=== PATIENT | female | born 1930 | race Caucasian/White ===

== ENCOUNTER 2018-03-22 20:41 | Emergency (ER) | payer BC ==
[2018-03-22 20:51] VITALS: BP 143/63; PULSE 61; TEMP 97.7; BMI 27.2
--- NOTE | 2018-03-22 21:47 | PDOC ---
History of Present Illness - General Chief Complaint: Cold Symptoms Stated Complaint: COLD LIKE SYMPTOMS Time Seen by Provider: 03/22/18 21:25 - History of Present Illness Initial Comments: 87-year-old female with past medical history of dyslipidemia hypertension and diabetes. She is also on Plavix. Presents with 1 week's worth of cough and intermittent fever and chills. She has done nothing to treat this point 03/22/18 21:39 Past History - Past Medical History Allergies/Adverse Reactions: Allergies Allergy/AdvReac Type Severity Reaction Status Date / Time No Known Allergies Allergy Verified 03/22/18 20:51 Home Medications: Ambulatory Orders Atorvastatin Ca [Lipitor] 40 mg PO HS 02/25/12 Enalapril Maleate [Vasotec -] 5 mg PO DAILY 02/25/12 Amlodipine Besylate [Norvasc -] 10 mg PO DAILY #30 tablet 08/01/16 Aspirin [ASA -] 81 mg PO DAILY #5 tab.chew 08/01/16 Clopidogrel Bisulfate [Plavix -] 75 mg PO DAILY #30 tablet 08/01/16 Sitagliptin Phosphate [Januvia] 25 mg PO DAILY #30 tablet 08/01/16 Diabetes: Yes HTN: Yes Hypercholesterolemia: Yes - Surgical History Neurologic Surgery: Yes (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 + weakness. No weight change.] HEAD, EYES, EARS, NOSE AND THROAT: [No change in vision. No ear pain or discharge. No sore throat.] CARDIOVASCULAR: [No chest pain or shortness of breath.] RESPIRATORY: [+ cough, wheezing, no hemoptysis.] GASTROINTESTINAL: [No nausea, vomiting, diarrhea or constipation. No rectal bleeding.] GENITOURINARY: [No dysuria, frequency, or change in urination.] MUSCULOSKELETAL: [No joint or muscle swelling or pain. No neck or back pain.] SKIN AND BREASTS: [No rash or easy bruising.] NEUROLOGIC: [No headache, vertigo, loss of consciousness, or loss of sensation.] PSYCHIATRIC: [No depression or anxiety.] ENDOCRINE: [No increased thirst. No abnormal weight change.] HEMATOLOGIC/LYMPHATIC: [No anemia, easy bleeding, or history of blood clots.] ALLERGIC/IMMUNOLOGIC: [No hives or skin allergy. No latex allergy.] 03/22/18 21:40 *Physical Exam - Vital Signs Last Vital Signs Temp Pulse Resp BP Pulse Ox 97.7 F 61 16 143/63 97 03/22/18 20:48 03/22/18 20:48 03/22/18 20:48 03/22/18 20:48 03/22/18 20:48 - Physical Exam Comments: GENERAL: [The patient is awake, alert, and fully oriented, in no acute distress. ] HEAD: [Normal with no signs of trauma.] EYES: [Pupils equal, round and reactive to light, extraocular movements intact, sclera anicteric, conjunctiva clear.] ENT: [Ears normal, nares patent, oropharynx clear without exudates. Moist mucous membranes.] NECK: [Normal range of motion, supple without lymphadenopathy, JVD, or masses.] LUNGS: [She has diffuse rhonchi and wheezes bilaterally.] HEART: [Regular rate and rhythm, normal S1 and S2 without murmur, rub or gallop. ] ABDOMEN: [Soft, nontender, normoactive bowel sounds. No guarding, no rebound. No masses.] EXTREMITIES: [Normal range of motion, no edema. No clubbing or cyanosis. No cords, erythema, or tenderness.] NEUROLOGICAL: [Cranial nerves II through XII grossly intact. Normal speech, normal gait.] PSYCH: [Normal mood, normal affect.] SKIN: [Warm, Dry, normal turgor, no rashes or lesions noted.] 03/22/18 21:41 ED Treatment Course - RADIOLOGY Radiology Studies Ordered: Category Date Time Status CHEST - PA [RAD] Stat Radiology 03/22/18 21:33 Ordered *DC/Admit/Observation/Transfer - Referrals Referrals: Isreal Zimmerman MD [Primary Care Provider] - - Patient Instructions - Post Discharge Activity
[2018-03-22] MEDS ORDERED: ALBUTEROL SO4 0.042% IH SOL 1.25 MG/3 ML VIAL.NEB NEB ONE ×2 (21:48→22:10)
[2018-03-22] MEDS ORDERED: ALBUTEROL SO4 0.083% IH SOL 2.5 MG/3 ML VIAL.NEB. NEB ONE (21:49)
[2018-03-22 22:24] LABS: EOS % 4.7 % (0-4.5); HEMATOCRIT 36.9 % (32.4-45.2); HEMOGLOBIN 13.3 GM/dL (10.7-15.3); LYMPH % 19.5 % (8-40); MCH 34.3 pg (25.7-33.7); MEAN CELL VOLUME 95.3 fl (80-96); MONO % 8.5 % (3.8-10.2); NEUT % 66.3 % (42.8-82.8); PLATELET COUNT 252 K/MM3 (134-434); RBC 3.87 M/mm3 (3.60-5.2); RDW 13.1 % (11.6-15.6); WHITE BLOOD COUNT 10.3 K/mm3 (4.0-10.0)
[2018-03-22 22:46] LABS: ALBUMIN 3.8 g/dl (3.4-5.0); ALK PHOS 155 U/L (45-117); ANION GAP 8 (8-16); BILIRUBIN,TOTAL 0.2 mg/dL (0.2-1.0); BLOOD UREA NITROGEN 23 mg/dL (7-18); CALCIUM 8.6 mg/dL (8.5-10.1); CHLORIDE 104 mmol/L (98-107); CO2 24 mmol/L (21-32); CREATININE 1.4 mg/dL (0.55-1.02); GLUCOSE,RANDOM 236 mg/dL (74-106); POTASSIUM 5.3 mmol/L (3.5-5.1); SGOT/AST 19 U/L (15-37); SGPT/ALT 18 U/L (12-78); SODIUM 136 mmol/L (136-145); TOT PROT 7.8 g/dl (6.4-8.2)
--- NOTE | 2018-03-22 23:44 | PDOC ---
*Physical Exam - Vital Signs Last Vital Signs Temp Pulse Resp BP Pulse Ox 97.7 F 61 16 143/63 96 03/22/18 20:48 03/22/18 20:48 03/22/18 20:48 03/22/18 20:48 03/22/18 22:04 ED Treatment Course - LABORATORY CBC & Chemistry Diagram: 03/22/18 22:15 03/22/18 22:15 - ADDITIONAL ORDERS Additional order review: Laboratory Results 03/22/18 22:15 Sodium 136 Potassium 5.3 H Chloride 104 Carbon Dioxide 24 Anion Gap 8 BUN 23 H Creatinine 1.4 H Creat Clearance w eGFR 35.65 Random Glucose 236 H Calcium 8.6 Total Bilirubin 0.2 D AST 19 ALT 18 Alkaline Phosphatase 155 H Total Protein 7.8 Albumin 3.8 03/22/18 22:15 RBC 3.87 MCV 95.3 MCHC 36.0 RDW 13.1 MPV 9.0 Neutrophils % 66.3 Lymphocytes % 19.5 D Monocytes % 8.5 Eosinophils % 4.7 H D Basophils % 1.0 - Medications Given in the ED: ED Medications Discontinued Medications Generic Name Dose Route Start Last Admin Trade Name Freq PRN Reason Stop Dose Admin Albuterol Sulfate 1 amp 03/22/18 21:48 03/22/18 21:52 Ventolin 0.042trength) - NEB 03/22/18 21:49 1 amp ONCE ONE Administration Albuterol Sulfate 1 amp 03/22/18 22:10 03/22/18 22:22 Ventolin 0.042trength) - NEB 03/22/18 22:11 1 amp ONCE ONE Administration Progress Note - Progress Note Progress Note: 2340hrs: L/S CTAB. Pulse ox sat @97 room air *DC/Admit/Observation/Transfer Diagnosis at time of Disposition: Viral syndrome - Discharge Dispostion Disposition: HOME Condition at time of disposition: Stable Decision to Admit order: No - Referrals Referrals: Isreal Zimmerman MD [Primary Care Provider] - - Patient Instructions Printed Discharge Instructions: DI for Viral Syndrome Additional Instructions: Please follow-up with your physician within 548 hours Increase fluids [id number] supportive care As discussed, return back to the emergency department for severe/persistent or worsening symptoms or any concerns - Post Discharge Activity
== END 2018-03-22 23:48 | disposition home or self-care (01) ==
LOC: JER 20:41 → JERFT 20:41 → JER 23:48
PROC: 3E0F7GC Introduction of Other Therapeutic Substance into Respiratory Tract, Via Natural or Artificial Opening (ICD-10-PCS; principal; 2018-03-22)
PROC: 3E0F7GC Introduction of Other Therapeutic Substance into Respiratory Tract, Via Natural or Artificial Opening (ICD-10-PCS; 2018-03-22)
DX: B34.9 Viral infection, unspecified (principal); I10 Essential (primary) hypertension; E11.9 Type 2 diabetes mellitus without complications; E78.5 Hyperlipidemia, unspecified; D33.2 Benign neoplasm of brain, unspecified; Z79.01 Long term (current) use of anticoagulants; Z79.84 Long term (current) use of oral hypoglycemic drugs
CPT/HCPCS: 36415; 71045-TC-FY; 80053; 85025; 94640; 99281-25

== ENCOUNTER 2018-11-28 17:07 | Emergency (ER) | payer BC ==
--- NOTE | 2018-11-28 17:11 | PDOC ---
Rapid Medical Evaluation Time Seen by Provider: 11/28/18 17:09 Medical Evaluation: Allergies Allergy/AdvReac Type Severity Reaction Status Date / Time No Known Allergies Allergy Verified 03/22/18 20:51 11/28/18 17:09 I have performed a brief in-person evaluation of this patient. The patient presents with a chief complaint of: CERVANTES w/ abnormal sound in ears x 1 week. Taking advil w/ no relief. 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 Discharge Disposition - Diagnosis Headache Qualifiers: Headache type: unspecified Headache chronicity pattern: acute headache Intractability: intractable Qualified Code(s): R51 - Headache - Referrals - Patient Instructions - Post Discharge Activity
[2018-11-28 17:13] VITALS: BMI 26.6
[2018-11-28 17:30] LABS: BASO % 0.8 % (0-2.0); EOS % 2.3 % (0-4.5); HEMATOCRIT 37.8 % (32.4-45.2); HEMOGLOBIN 13.1 GM/dL (10.7-15.3); LYMPH % 30.8 % (8-40); MCH 33.3 pg (25.7-33.7); MCHC 34.8 g/dl (32.0-36.0); MEAN CELL VOLUME 95.6 fl (80-96); MEAN PLT VOLUME 9.1 fl (7.5-11.1); MONO % 9.4 % (3.8-10.2); NEUT % 56.7 % (42.8-82.8); PLATELET COUNT 223 K/MM3 (134-434); RBC 3.95 M/mm3 (3.60-5.2); RDW 12.2 % (11.6-15.6); WHITE BLOOD COUNT 7.8 K/mm3 (4.0-10.0)
[2018-11-28 17:31] LABS: URINE APPEARANCE SLCLOUDY; URINE BILIRUBIN NEGATIVE (<2.0 mg/dL); URINE COLOR LTYELLOW; URINE GLUCOSE (UA) NEGATIVE (NEGATIVE); URINE KETONE NEGATIVE (NEGATIVE); URINE LEUK ESTERASE 3+ (NEGATIVE); URINE NITRITE NEGATIVE (NEGATIVE); URINE PROTEIN 2+ (NEGATIVE); URINE UROBILINOGEN NEGATIVE mg/dL (0.2-1.0)
[2018-11-28 17:33] LABS: EPI CELLS RARE /HPF (FEW); URINE MUCUS RARE
[2018-11-28 18:09] LABS: ALBUMIN 3.7 g/dl (3.4-5.0); ALK PHOS 155 U/L (45-117); ANION GAP 10 MMOL/L (8-16); BILIRUBIN,TOTAL 0.2 mg/dL (0.2-1); BLOOD UREA NITROGEN 32 mg/dL (7-18); CALCIUM 8.6 mg/dL (8.5-10.1); CHLORIDE 107 mmol/L (98-107); CO2 24 mmol/L (21-32); CREATININE 1.5 mg/dL (0.55-1.3); GLUCOSE,RANDOM 228 mg/dL (74-106); POTASSIUM 5.1 mmol/L (3.5-5.1); SGOT/AST 11 U/L (15-37); SGPT/ALT 24 U/L (13-61); SODIUM 141 mmol/L (136-145); TOT PROT 7.4 g/dl (6.4-8.2)
[2018-11-28 18:57] VITALS: BP 144/69; PULSE 60; TEMP 98.1
--- NOTE | 2018-11-28 19:19 | PDOC ---
History of Present Illness - General Chief Complaint: Headache Stated Complaint: PCP SENT/EVALUATION TO R/O CVA Time Seen by Provider: 11/28/18 17:09 - History of Present Illness Initial Comments: The patient is an 87F w/ a history of HTN and acoustic neuroma s/p resection who presents for evaluation of CERVANTES. She reports that she has had it for 1wk. Described as generalized, gradual onset, b/l, comes/goes, and tried Advil w/ minimal relief. Denies fevers/chills, vision changes, chest pain, SOB, abdominal pain, N/V/C/D, or changes in sensation Denies recent fall Lives at home, alone. 11/28/18 19:48 Past History - Past Medical History Allergies/Adverse Reactions: Allergies Allergy/AdvReac Type Severity Reaction Status Date / Time No Known Allergies Allergy Verified 11/28/18 17:10 Home Medications: Ambulatory Orders Atorvastatin Ca [Lipitor] 40 mg PO HS 02/25/12 Enalapril Maleate [Vasotec -] 5 mg PO DAILY 02/25/12 Amlodipine Besylate [Norvasc -] 10 mg PO DAILY #30 tablet 08/01/16 Aspirin [ASA -] 81 mg PO DAILY #5 tab.chew 08/01/16 Clopidogrel Bisulfate [Plavix -] 75 mg PO DAILY #30 tablet 08/01/16 Sitagliptin Phosphate [Januvia] 25 mg PO DAILY #30 tablet 08/01/16 Cephalexin Monohydrate [Keflex -] 500 mg PO BID 7 Days #14 capsule 11/28/18 COPD: No Diabetes: Yes HTN: Yes Hypercholesterolemia: Yes - Surgical History Neurologic Surgery: Yes (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 No weakness HEAD, EYES, EARS, NOSE AND THROAT: No change in vision. No ear pain or discharge. No sore throat CARDIOVASCULAR: No chest pain or shortness of breath RESPIRATORY: Denies cough, hemoptysis GASTROINTESTINAL: No nausea, vomiting, diarrhea or constipation GENITOURINARY: No dysuria, frequency, or change in urination MUSCULOSKELETAL: +chronic b/l knee pain SKIN: No rash NEUROLOGIC: No vertigo, loss of consciousness, or change in strength/sensation ENDOCRINE: No increased thirst. No abnormal weight change ALLERGIC/IMMUNOLOGIC: No hives or skin allergy 11/28/18 19:13 Is the patient limited Lao proficient: No *Physical Exam - Vital Signs Last Vital Signs Temp Pulse Resp BP Pulse Ox 98.1 F 60 20 144/69 98 11/28/18 18:56 11/28/18 18:56 11/28/18 18:56 11/28/18 18:56 11/28/18 18:56 - Physical Exam Comments: GENERAL: Awake, alert, and fully oriented, in no acute distress HEAD: No signs of trauma, normocephalic, atraumatic EYES: PERRLA, EOMI, sclera anicteric, conjunctiva clear ENT: nares patent, oropharynx clear without exudates. No uvular deviation. Moist mucosa LUNGS: No distress, speaks full sentences, clear to auscultation bilaterally HEART: Regular rate and rhythm, normal S1 and S2, no murmurs appreciated, peripheral pulses normal and equal bilaterally ABDOMEN: Soft, nontender, normoactive bowel sounds. No guarding, no rebound EXTREMITIES : Normal inspection, Normal range of motion, no edema. No clubbing or cyanosis NEUROLOGICAL: Essential tremor, worse w/ purposeful movement, Cranial nerves II through XII grossly intact. no focal sensorimotor deficits SKIN: Warm, Dry 11/28/18 19:15 Moderate Sedation - Procedure Monitoring Vital Signs: Procedure Monitoring Vital Signs Temperature 98.1 F 11/28/18 18:56 Pulse Rate 60 11/28/18 18:56 Respiratory Rate 20 11/28/18 18:56 Blood Pressure 144/69 11/28/18 18:56 O2 Sat by Pulse Oximetry (%) 98 11/28/18 18:56 ED Treatment Course - LABORATORY CBC & Chemistry Diagram: 11/28/18 17:19 11/28/18 17:19 - ADDITIONAL ORDERS Additional order review: Laboratory Results 11/28/18 11/28/18 17:19 17:19 Sodium 141 Potassium 5.1 Chloride 107 Carbon Dioxide 24 Anion Gap 10 BUN 32 H Creatinine 1.5 H Creat Clearance w eGFR 32.92 Random Glucose 228 H Calcium 8.6 Total Bilirubin 0.2 AST 11 L ALT 24 Alkaline Phosphatase 155 H Total Protein 7.4 Albumin 3.7 Urine Color Ltyellow Urine Appearance Slcloudy Urine pH 5.0 D Ur Specific [place] 1.015 Urine Protein 2+ H Urine Glucose (UA) Negative Urine Ketones Negative Urine Blood Negative Urine Nitrite Negative Urine Bilirubin Negative Urine Urobilinogen Negative Ur Leukocyte Esterase 3+ H Urine WBC (Auto) 31 Urine RBC (Auto) <1 Ur Epithelial Cells Rare Urine Mucus Rare 11/28/18 17:19 RBC 3.95 MCV 95.6 MCHC 34.8 RDW 12.2 MPV 9.1 Neutrophils % 56.7 Lymphocytes % 30.8 D Monocytes % 9.4 Eosinophils % 2.3 Basophils % 0.8 Medical Decision Making - Medical Decision Making The pt is an 87F w/ a history of acoustic neuroma s/p resection 20y ago who presents for evaluation of a CERVANTES and tinnitus. ED Course CMP, CBC, UA CT Head CT w/o evidence acute pathology UA w/ evidence of UTI No anemia No leukocytosis 11/28/18 19:15 Keflex 500mg PO once for UTI -Rx for Keflex 500mg PO BID for 7d to pt's pharmacy Tylenol 975mg PO once for CERVANTES Discussed importance of medication compliance w/ patient and her family They plan to buy a pill organizer and help her manage her medications from now on Plan for D/C w/ PCP f/u Discharge instructions and return precautions given Patient and family in agreement and verbalize understanding Dispo: home 11/28/18 19:42 *DC/Admit/Observation/Transfer Diagnosis at time of Disposition: Headache Qualifiers: Headache type: unspecified Headache chronicity pattern: acute headache Intractability: intractable Qualified Code(s): R51 - Headache UTI (urinary tract infection) Qualifiers: Urinary tract infection type: site unspecified Hematuria presence: without hematuria Qualified Code(s): N39.0 - Urinary tract infection, site not specified - Discharge Dispostion Disposition: HOME Condition at time of disposition: Stable Decision to Admit order: No - Prescriptions Prescriptions: Cephalexin Monohydrate [Keflex -] 500 mg PO BID 7 Days #14 capsule - Referrals Referrals: Isreal Zimmerman MD [Primary Care Provider] - - Patient Instructions Printed Discharge Instructions: DI for Urinary Tract Infection (UTI) Additional Instructions: You were seen in the Emergency Department for headache. Your CT scan of your head was w/o acute pathology or bleed. You were found to have a urinary tract infection and given one dose of antibiotics here. A prescription for antibiotics was sent to your pharmacy. Take as directed. Also, follow up with your primary care physician. Return to the Emergency Department if you develop fevers/chills, vision changes , headache despite Tylenol use, chest pain, trouble breathing, changes in sensation, or any new/concerning symptoms. - Post Discharge Activity
[2018-11-28] MEDS ORDERED: ACETAMINOPHEN 325 MG TABLET (FP) PO ONE (19:23)
--- NOTE | 2018-11-28 19:23 | PDOC ---
Attending Attestation - HPI HPI: 11/28/18 19:41 The patient is a 87 year old female, with a significant PMH of acoustic neuroma s/p resection >20 years ago, dyslipidemia, hypertension and diabetes mellitus, who presents to the emergency department with 1 week history of intermittent bitemporal throbbing headache. The patient states she has experienced similar headaches in the past which she states normally last for 1 week before resolving. The patient also endorses abnormal sounds/ringing in her ears for 1 week. The patient states she has been taking Advil for the headache with minimal relief which prompted the ED visit. The patient denies chest pain, shortness of breath, and dizziness. Denies fever, chills, nausea, vomit, diarrhea and constipation. Denies dysuria, frequency, urgency and hematuria. Denies blurry vision or visual changes. Allergies: NKA Documentation prepared by Ricky Edwards, acting as medical transcription radiology for Kayla Langford MD. - Physicial Exam PE: 11/28/18 19:45 GENERAL: (+) Essential tremor noted in hands, arms and body, worsened with purposeful movement. Awake, alert, and fully oriented, in no acute distress HEAD: No signs of trauma EYES: PERRLA, EOMI, sclera anicteric, conjunctiva clear ENT: Auricles normal inspection, hearing grossly normal, nares patent, oropharynx clear without exudates. Moist mucosa NECK: Normal ROM, supple, no lymphadenopathy, JVD, or masses LUNGS: Breath sounds equal, clear to auscultation bilaterally. No wheezes, and no crackles HEART: Regular rate and rhythm, normal S1 and S2, no murmurs, rubs or gallops ABDOMEN: Soft, nontender, normoactive bowel sounds. No guarding, no rebound. No masses. No flank pain. EXTREMITIES: Normal range of motion, no edema. No clubbing or cyanosis. No cords, erythema, or tenderness. Reflex are intact throughout. NEUROLOGICAL: Cranial nerves II through XII grossly intact. Normal speech. SKIN: Warm, Dry, normal turgor, no rashes or lesions noted. <Ricky Edwards - Last Filed: 11/28/18 20:03> - Resident Resident Name: Vinicius Smith - ED Attending Attestation I have performed the following: I have examined & evaluated the patient, The case was reviewed & discussed with the resident, I agree w/resident's findings & plan - Medical Decision Making 11/29/18 06:14 Pt's headache is improved slightly. Pt has an essential tremor; she has normal head CT result. She states that the headache is bitemporal. However, her sed rate is normal at 23 and we do not think that this is a temporal arteritis. Pt was reassured and sent home with abx for her UTI, Home with son. <Kayla Langford - Last Filed: 11/29/18 06:16>
[2018-11-28] MEDS ORDERED: ACETAMINOPHEN 325 MG TABLET (FP) ONE (19:27)
[2018-11-28] MEDS ORDERED: CEPHALEXIN MONOHYDRATE 500 MG CAPSULE (UD) PO ONE (19:41)
[2018-11-28] MEDS ORDERED: CEPHALEXIN MONOHYDRATE 500 MG CAPSULE (UD) ONE (19:46)
== END 2018-11-28 20:03 | disposition home or self-care (01) ==
LOC: JER 17:07
DX: N39.0 Urinary tract infection, site not specified (principal); R51 Headache; I10 Essential (primary) hypertension; E11.9 Type 2 diabetes mellitus without complications; Z79.84 Long term (current) use of oral hypoglycemic drugs; E78.5 Hyperlipidemia, unspecified; Z86.011 Personal history of benign neoplasm of the brain
CPT/HCPCS: 36415; 70450-TC; 80053; 81003; 81015; 85025; 85651; 99282-25

== ENCOUNTER 2019-04-29 15:53 | Inpatient (IN) | payer BC | END 2019-05-06 13:29 | disposition home health service (06) | LOC: JICU 04-30 01:34 → JER 15:53 → JERBED 19:07 → J6S 04-30 19:23 → J7W 20:38 → J6S 04-30 22:53 ==

== ENCOUNTER 2019-05-15 18:36 | Inpatient (IN) | payer BC, OTHER ==
--- NOTE | 2019-05-15 19:11 | PDOC ---
History of Present Illness - General Chief Complaint: Nausea/Vomiting Stated Complaint: nausea Time Seen by Provider: 05/15/19 19:10 - History of Present Illness Initial Comments: 05/15/19 19:19 Ms. Steen is an 88 yo female w/ pmh of HLD, HTN, DM, w/ recent admission 04/29- for UTI who presents for evaluation of tremors and chills similar to presentation prior to last UTI. Son reported symptoms have been going for 1 day , prompting his visit. Ms. Steen reports she feels improved now however did not want to eat all day and was pale per son earlier in the day. She vomited once before arrival w/ EMS. The patient denies chest pain, shortness of breath, headache and dizziness. Denies diarrhea and constipation. Denies dysuria, frequency, urgency and hematuria. Allergies: NKA PCP: Ottoniel Past History - Past Medical History Allergies/Adverse Reactions: Allergies Allergy/AdvReac Type Severity Reaction Status Date / Time No Known Allergies Allergy Verified 05/15/19 18:54 Home Medications: Ambulatory Orders Atorvastatin Ca [Lipitor] 10 mg PO HS 02/25/12 Enalapril Maleate [Vasotec -] 5 mg PO DAILY 02/25/12 Amlodipine Besylate [Norvasc -] 10 mg PO DAILY #30 tablet 08/01/16 Sitagliptin Phosphate [Januvia] 25 mg PO DAILY #30 tablet 08/01/16 Ascorbate Calcium [Vitamin C] 500 mg PO DAILY 04/29/19 Cholecalciferol (Vitamin D3) [Vitamin D3] 1,000 unit PO DAILY 04/29/19 Propranolol HCl [Propranolol HCl ER] 60 mg PO DAILY 04/29/19 Acetaminophen [Tylenol .Regular Strength -] 650 mg PO Q6H PRN tablet 05/06/19 Quetiapine Fumarate [Seroquel -] 12.5 mg PO DAILY #30 tablet 05/06/19 Ranitidine [Zantac -] 150 mg PO DAILY #30 tablet 05/06/19 Sulfamethoxazole/Trimethoprim [Bactrim DS -] 1 each PO BID #14 tablet 05/06/19 Anemia: No Asthma: Yes Cancer: No Cardiac Disorders: No CVA: Yes (2015) COPD: No CHF: No Dementia: No Diabetes: Yes GI Disorders: No Disorders: No HTN: Yes Hypercholesterolemia: Yes Liver Disease: No Seizures: No Thyroid Disease: No - Surgical History Abdominal Surgery: No Appendectomy: No Cardiac Surgery: No Cholecystectomy: No Lung Surgery: No Neurologic Surgery: Yes (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 No weakness. HEAD, EYES, EARS, NOSE AND THROAT: No change in vision. No ear pain or discharge. No sore throat. CARDIOVASCULAR: No chest pain or shortness of breath RESPIRATORY: No cough, wheezing, or hemoptysis. GASTROINTESTINAL: +Single episode vomiting. No diarrhea or constipation. GENITOURINARY: No dysuria, frequency, or change in urination. MUSCULOSKELETAL: No joint or muscle swelling or pain. No neck or back pain. SKIN: No rash NEUROLOGIC: No headache, vertigo, loss of consciousness, or change in strength/ sensation. ENDOCRINE: No increased thirst. No abnormal weight change HEMATOLOGIC/LYMPHATIC: No anemia, easy bleeding, or history of blood clots. ALLERGIC/IMMUNOLOGIC: No hives or skin allergy. *Physical Exam - Vital Signs Last Vital Signs Temp Pulse Resp BP Pulse Ox 102.7 F H 76 16 159/69 94 L 05/15/19 18:40 05/15/19 18:40 05/15/19 18:40 05/15/19 18:40 05/15/19 18:40 - Physical Exam Comments: 05/15/19 19:27 GENERAL: Awake, alert, and fully oriented, in no acute distress HEAD: No signs of trauma, normocephalic, atraumatic EYES: PERRLA, EOMI, sclera anicteric, conjunctiva clear ENT: Auricles normal inspection, hearing grossly normal, nares patent, oropharynx clear without exudates. Moist mucosa NECK: Normal ROM, supple, no lymphadenopathy, JVD, or masses LUNGS: No distress, speaks full sentences, clear to auscultation bilaterally HEART: Regular rate and rhythm, normal S1 and S2, no murmurs, rubs or gallops, peripheral pulses normal and equal bilaterally. ABDOMEN: Soft, nontender, normoactive bowel sounds. No guarding, no rebound. No masses EXTREMITIES: Normal inspection, Normal range of motion, no edema. No clubbing or cyanosis. NEUROLOGICAL: Cranial nerves II through XII grossly intact. Normal speech, normal gait, no focal sensorimotor deficits SKIN: Warm, Dry, normal turgor, no rashes or lesions noted. ED Treatment Course - LABORATORY CBC & Chemistry Diagram: 05/15/19 19:23 05/15/19 19:23 Medical Decision Making - Medical Decision Making 05/15/19 19:41 Ms. Steen is an 88 yo female w/ pmh as described who presents for evaluation of symptoms concerning for sepsis. Patient evaluate w/ sepsis protocol and following cultures meropenem started per previous ID notes for prophylaxis. 05/15/19 20:34 Patient septic w/ unclear origin. Patient discussed w/ hospitalist for admit given high risk status and previous gram (-) rods. Patient will be admitted for ID consult. Laboratory Results - last 24 hr 05/15/19 05/15/19 05/15/19 19:23 19:23 19:23 WBC 12.0 H RBC 3.44 L Hgb 11.0 Hct 32.6 MCV 94.9 MCH 31.9 MCHC 33.7 RDW 12.1 Plt Count 213 D MPV 8.9 Absolute Neuts (auto) 10.6 H Neutrophils % 88.3 H D Lymphocytes % 4.9 L D Monocytes % 5.9 Eosinophils % 0.5 Basophils % 0.4 Nucleated RBC % 0 PT with INR 13.90 H INR 1.18 H PTT (Actin FS) 26.1 VBG pH POC VBG pCO2 POC VBG pO2 VBG HCO3 VBG O2 Sat (Elaine) VBG Base Excess Sodium Potassium Chloride Carbon Dioxide Anion Gap BUN Creatinine Est GFR (CKD-EPI)AfAm Est GFR (CKD-EPI)NonAf Random Glucose Lactic Acid Calcium Total Bilirubin AST ALT Alkaline Phosphatase Troponin I Total Protein Albumin Urine Color Yellow Urine Appearance Clear Urine pH 5.5 Ur Specific [place] 1.013 Urine Protein 3+ H Urine Glucose (UA) Negative Urine Ketones Negative Urine Blood 1+ H Urine Nitrite Negative Urine Bilirubin Negative Urine Urobilinogen 0.2 Ur Leukocyte Esterase Negative Urine WBC (Auto) 1 Urine RBC (Auto) 2 Urine Casts (Auto) 3 U Epithel Cells (Auto) 1.7 Urine Bacteria (Auto) 1.4 05/15/19 05/15/19 05/15/19 19:23 19:23 19:23 WBC RBC Hgb Hct MCV MCH MCHC RDW Plt Count MPV Absolute Neuts (auto) Neutrophils % Lymphocytes % Monocytes % Eosinophils % Basophils % Nucleated RBC % PT with INR INR PTT (Actin FS) VBG pH POC VBG pCO2 POC VBG pO2 VBG HCO3 VBG O2 Sat (Elaine) VBG Base Excess Sodium 128 L Potassium 5.5 H Chloride 100 Carbon Dioxide 20 L Anion Gap 8 BUN 23.2 H Creatinine 1.7 H Est GFR (CKD-EPI)AfAm 30.89 Est GFR (CKD-EPI)NonAf 26.65 Random Glucose 199 H Lactic Acid 1.2 Calcium 7.9 L Total Bilirubin 0.4 AST 15 ALT 19 Alkaline Phosphatase 111 Troponin I < 0.02 Total Protein 6.2 L Albumin 3.0 L Urine Color Urine Appearance Urine pH Ur Specific [place] Urine Protein Urine Glucose (UA) Urine Ketones Urine Blood Urine Nitrite Urine Bilirubin Urine Urobilinogen Ur Leukocyte Esterase Urine WBC (Auto) Urine RBC (Auto) Urine Casts (Auto) U Epithel Cells (Auto) Urine Bacteria (Auto) 05/15/19 20:00 WBC RBC Hgb Hct MCV MCH MCHC RDW Plt Count MPV Absolute Neuts (auto) Neutrophils % Lymphocytes % Monocytes % Eosinophils % Basophils % Nucleated RBC % PT with INR INR PTT (Actin FS) VBG pH 7.41 POC VBG pCO2 30.3 L POC VBG pO2 63.0 H VBG HCO3 18.7 L VBG O2 Sat (Elaine) 91.5 H VBG Base Excess -4.6 L Sodium Potassium Chloride Carbon Dioxide Anion Gap BUN Creatinine Est GFR (CKD-EPI)AfAm Est GFR (CKD-EPI)NonAf Random Glucose Lactic Acid Calcium Total Bilirubin AST ALT Alkaline Phosphatase Troponin I Total Protein Albumin Urine Color Urine Appearance Urine pH Ur Specific [place] Urine Protein Urine Glucose (UA) Urine Ketones Urine Blood Urine Nitrite Urine Bilirubin Urine Urobilinogen Ur Leukocyte Esterase Urine WBC (Auto) Urine RBC (Auto) Urine Casts (Auto) U Epithel Cells (Auto) Urine Bacteria (Auto) *DC/Admit/Observation/Transfer Diagnosis at time of Disposition: PATRIC (acute kidney injury) Sepsis Qualifiers: Sepsis type: sepsis due to unspecified organism Qualified Code(s): A41.9 - Sepsis, unspecified organism - Discharge Dispostion Decision to Admit order: Yes - Referrals Referrals: Isreal Zimmerman MD [Primary Care Provider] - - Patient Instructions - Post Discharge Activity
[2019-05-15] MEDS ORDERED: ACETAMINOPHEN 1000 MG/100 ML VIAL (NON FORMULARY) IVPB ONE (19:27)
[2019-05-15] MEDS ORDERED: MEROPENEM 500 MG in DEXTROSE 5%-WATER 100 ML IVPB ONE (19:40)
[2019-05-15 19:41] LABS: BASO % 0.4 % (0-2.0); EOS % 0.5 % (0-4.5); HEMATOCRIT 32.6 % (32.4-45.2); LYMPH % 4.9 % (8-40); MCH 31.9 pg (25.7-33.7); MCHC 33.7 g/dl (32.0-36.0); MEAN CELL VOLUME 94.9 fl (80-96); MEAN PLT VOLUME 8.9 fl (7.5-11.1); MONO % 5.9 % (3.8-10.2); NEUT % 88.3 % (42.8-82.8); PLATELET COUNT 213 K/MM3 (134-434); RBC 3.44 M/mm3 (3.60-5.2); RDW 12.1 % (11.6-15.6)
[2019-05-15] MEDS ORDERED: MEROPENEM 1 GM VIAL (RESTRICTED TO ID) IVPB ONE (19:50)
--- NOTE | 2019-05-15 19:52 | PDOC ---
Attending Attestation - Resident Resident Name: Kenji Holden - ED Attending Attestation I have performed the following: I have examined & evaluated the patient, The case was reviewed & discussed with the resident, I agree w/resident's findings & plan, Exceptions are as noted - HPI HPI: 05/15/19 19:48 88 year old female with hypertension, diabetes, hyperlipidemia, prior bacteremia secondary to urinary tract infection presents with fever since today. Patient was recently here in April 2019 and noted to have gram-negative ada bacteremia as well as positive urinary tract infection. There is some multidrug resistance at that time. The patient started developing a fever today and felt generalized weakness. The patient reported poor appetite but denies any abdominal pain or dysuria. - Physicial Exam PE: 05/15/19 19:48 GENERAL: Awake, alert, and fully oriented, in no acute distress HEAD: No signs of trauma EYES: EOMI, sclera anicteric, conjunctiva clear ENT: Auricles normal inspection, hearing grossly normal, nares patent, oropharynx clear without exudates. Moist mucosa NECK: Normal ROM, supple,ses LUNGS: Breath sounds equal, clear to auscultation bilaterally. No wheezes, and no crackles HEART: Regular rate and rhythm, normal S1 and S2, no murmurs, rubs or gallops ABDOMEN: Soft, nontender, No guarding, no rebound. No masses EXTREMITIES: Normal range of motion, no edema. No clubbing or cyanosis. No cords, erythema, or tenderness NEUROLOGICAL: Cranial nerves II through XII grossly intact. Normal speech SKIN: Warm, Dry, normal turgor, no rashes or lesions noted. - Medical Decision Making 05/15/19 19:50 Vital Signs Temp Pulse Resp BP Pulse Ox 102.7 F H 76 16 159/69 94 L 05/15/19 19:48 05/15/19 18:40 05/15/19 18:40 05/15/19 18:40 05/15/19 18:40 Patient's findings concerning for urinary tract infection, possibly gram- negative ada bacteremia like prior visit. I agree with resident's plan to obtain sepsis protocol initiated empiric antibiotics. The prior admission the patient was currently on and meropenem. We'll initiate meropenem. The patient lives by herself and is unlikely to be safe for discharge. The patient should be admitted to the hospital for further management. 05/15/19 21:07 CBC, BMP 05/15/19 19:23 05/15/19 19:23 CMP Sodium 128 mmol/L (136-145) L 05/15/19 19:23 Potassium 5.5 mmol/L (3.5-5.1) H 05/15/19 19:23 Chloride 100 mmol/L (98-107) 05/15/19 19:23 Carbon Dioxide 20 mmol/L (21-32) L 05/15/19 19:23 Anion Gap 8 MMOL/L (8-16) 05/15/19 19:23 BUN 23.2 mg/dL (7-18) H 05/15/19 19:23 Creatinine 1.7 mg/dL (0.55-1.3) H 05/15/19 19:23 Est GFR (CKD-EPI)AfAm 30.89 05/15/19 19:23 Est GFR (CKD-EPI)NonAf 26.65 05/15/19 19:23 Random Glucose 199 mg/dL (74-106) H 05/15/19 19:23 Lactic Acid 1.2 mmol/L (0.4-2.0) 05/15/19 19:23 Calcium 7.9 mg/dL (8.5-10.1) L 05/15/19 19:23 Total Bilirubin 0.4 mg/dL (0.2-1) 05/15/19 19:23 AST 15 U/L (15-37) 05/15/19 19:23 ALT 19 U/L (13-61) 05/15/19 19:23 Alkaline Phosphatase 111 U/L (45-117) 05/15/19 19:23 Troponin I < 0.02 ng/ml (0.00-0.05) 05/15/19 19:23 Total Protein 6.2 g/dl (6.4-8.2) L 05/15/19 19:23 Albumin 3.0 g/dl (3.4-5.0) L 05/15/19 19:23 Urine Test Results Urine Color Yellow 05/15/19 19:23 Urine Appearance Clear 05/15/19 19:23 Urine pH 5.5 (5.0-8.0) 05/15/19 19:23 Ur Specific [place] 1.013 (1.010-1.035) 05/15/19 19:23 Urine Protein 3+ (NEGATIVE) H 05/15/19 19:23 Urine Glucose (UA) Negative (NEGATIVE) 05/15/19 19:23 Urine Ketones Negative (NEGATIVE) 05/15/19 19:23 Urine Blood 1+ (NEGATIVE) H 05/15/19 19:23 Urine Nitrite Negative (NEGATIVE) 05/15/19 19:23 Urine Bilirubin Negative (NEGATIVE) 05/15/19 19:23 Ur Leukocyte Esterase Negative (NEGATIVE) 05/15/19 19:23 Though urine is negative, given high risk of bacteremia, pt should be admitted with empiric antibiotics. Heart Score/ECG Review #1 ECG reviewed & interpreted by me at: 21:00 05/15/19 21:26 NSR 65, no std/phyllis, normal axis, normal intervals, QTC 443 msec
[2019-05-15] MEDS ORDERED: ACETAMINOPHEN INJECTION 100 ML IVPB ONE (19:53)
[2019-05-15 20:08] LABS: EPI CELLS 1.7 /HPF (0-5/HPF); HYALINE CASTS 3 /lpf (0-8); PH,URINE 5.5 (5.0-8.0); URINE APPEARANCE CLEAR; URINE BACTERIA 1.4 /hpf (NEGATIVE); URINE BILIRUBIN NEGATIVE (NEGATIVE); URINE COLOR YELLOW; URINE GLUCOSE (UA) NEGATIVE (NEGATIVE); URINE KETONE NEGATIVE (NEGATIVE); URINE LEUK ESTERASE NEGATIVE (NEGATIVE); URINE NITRITE NEGATIVE (NEGATIVE); URINE PROTEIN 3+ (NEGATIVE); URINE RBC 2 /hpf (0-4); URINE UROBILINOGEN 0.2 mg/dL (0.2-1.0); URINE WBC 1 /hpf (0-5)
[2019-05-15 20:13] LABS: INR 1.18 (0.83-1.09); PROTHROMBIN TIME (PATIENT) 13.9 SEC (9.7-13.0)
[2019-05-15 20:16] LABS: ACTIVATED PTT 26.1 SECONDS (25.2-36.5)
[2019-05-15 20:17] LABS: VENOUS PC02 30.3 mmHg (41-51); VENOUS PH 7.41 (7.31-7.41)
[2019-05-15 20:19] LABS: BILIRUBIN,TOTAL 0.4 mg/dL (0.2-1); BLOOD UREA NITROGEN 23.2 mg/dL (7-18); CALCIUM 7.9 mg/dL (8.5-10.1); CREATININE 1.7 mg/dL (0.55-1.3); POTASSIUM 5.5 mmol/L (3.5-5.1); TOT PROT 6.2 g/dl (6.4-8.2)
[2019-05-15] MEDS ORDERED: SODIUM CHLORIDE 500 ML IV STA (20:25)
[2019-05-15] MEDS ORDERED: ACETAMINOPHEN 325 MG TABLET (FP) PO PRN (21:25)
[2019-05-15] MEDS ORDERED: DOCUSATE SODIUM 100 MG CAPSULE (FP) PO PRN (21:32)
[2019-05-15] MEDS ORDERED: SENNOSIDES 8.6MG TABLET (FP) PO PRN (21:32)
--- NOTE | 2019-05-15 22:16 | HP ---
Admitting History and Physical - Primary Care Physician PCP: Isreal Zimmerman - Admission Chief Complaint: Fever/chills/nausea/vomiting History of Present Illness: 85-year-old female with a past medical history of HTN, DM Type 2, HLD, PSHx of: Brain tumor removed (benign) who was hospitalized at [facility] from 04/29 - with UTI sepsis. urine and blood culture positive E. Coli. She was treated with meropenem and discharged home on bactrim BID x 7days. Pt reports N/V/fever and chills which started on the morning of 05/15. Her son decided to take her into the emergency department for evaluation. She denies chest pain, shortness of breath, headache and dizziness, diarrhea and constipation. Denies dysuria, frequency, urgency and hematuria. In ED: Vitals were T 102.7, HR 76, BP 159/69, O2 sat 94%, RR 16 CXR no acute findings Labs: WBC 12.0, K 5.5, lac 1.2, U/A +3 protein ,+ 1 blood Blood and urine cultures sent Pt dosed Meropenem 500mg x 1 dose and patient admitted for further management. History Source: Patient Limitations to Obtaining History: No Limitations - Past Medical History [employer]: Yes: Other (S/p brain Tumor w/ resting ataxia) Cardiovascular: Yes: HTN, Hyperlipdemia Gastrointestinal: Yes: GERD Reproductive: Yes: Postmenopausal ...: No Musculoskeletal: Yes: Osteoarthritis - Past Surgical History Additional Past Surgical History: brain tumor resection - Smoking History Smoking history: Never smoked Have you smoked in the past 12 months: No Aproximately how many cigarettes per day: 0 - Alcohol/Substance Use Hx Alcohol Use: No History of Substance Use: reports: None - Social History Usual Living Arrangement: Yes: Alone ADL: Family Assistance History of Recent Travel: No Home Medications - Allergies Allergies/Adverse Reactions: Allergies Allergy/AdvReac Type Severity Reaction Status Date / Time No Known Allergies Allergy Verified 05/15/19 18:54 - Home Medications Home Medications: Ambulatory Orders Atorvastatin Ca [Lipitor] 10 mg PO HS 02/25/12 Enalapril Maleate [Vasotec -] 5 mg PO DAILY 02/25/12 Amlodipine Besylate [Norvasc -] 10 mg PO DAILY #30 tablet 08/01/16 Sitagliptin Phosphate [Januvia] 25 mg PO DAILY #30 tablet 08/01/16 Ascorbate Calcium [Vitamin C] 500 mg PO DAILY 04/29/19 Cholecalciferol (Vitamin D3) [Vitamin D3] 1,000 unit PO DAILY 04/29/19 Propranolol HCl [Propranolol HCl ER] 60 mg PO DAILY 04/29/19 Acetaminophen [Tylenol .Regular Strength -] 650 mg PO Q6H PRN tablet 05/06/19 Quetiapine Fumarate [Seroquel -] 12.5 mg PO DAILY #30 tablet 05/06/19 Ranitidine [Zantac -] 150 mg PO DAILY #30 tablet 05/06/19 Sulfamethoxazole/Trimethoprim [Bactrim DS -] 1 each PO BID #14 tablet 05/06/19 Family Disease History - Family Disease History Family History: Unable to Obtain (pt does not recall details of family history) Review of Systems - Review of Systems Constitutional: reports: Chills, Fever, Loss of Appetite, Weakness Eyes: reports: No Symptoms HENT: reports: No Symptoms Neck: reports: No Symptoms Cardiovascular: reports: No Symptoms Respiratory: reports: No Symptoms Gastrointestinal: reports: Nausea, Vomiting Genitourinary: reports: No Symptoms Breasts: reports: No Symptoms Reported Musculoskeletal: reports: Decreased ROM, Muscle Weakness Integumentary: reports: No Symptoms Neurological: reports: Unsteady Gait Endocrine: reports: No Symptoms Hematology/Lymphatic: reports: No Symptoms Psychiatric: reports: No Symptoms Physical Examination Vital Signs: Vital Signs Temperature 99.3 F 05/15/19 21:17 Pulse Rate 88 05/15/19 21:17 Respiratory Rate 19 05/15/19 21:17 Blood Pressure 145/96 05/15/19 21:17 O2 Sat by Pulse Oximetry (%) 100 05/15/19 21:17 Constitutional: Yes: No Distress, Calm Eyes: Yes: Conjunctiva Clear, PERRL HENT: Yes: Atraumatic, Normocephalic, Other Neck: Yes: Supple Cardiovascular: Yes: Regular Rate and Rhythm Respiratory: Yes: Regular, Other (dminished at the bases) Gastrointestinal: Yes: Soft, Hypoactive Bowel Sounds ...Rectal Exam: Yes: Deferred Renal/: Yes: Incontinence (diaper in place) Musculoskeletal: Yes: Muscle Weakness Edema: No Peripheral Pulses WNL: Yes Peripheral Pulses: Left Radial: 2+, Right Radial: 2+ Integumentary: Yes: WNL Wound/Incision: Yes: Clean/Dry Neurological: Yes: Alert, Oriented ...Motor Strength: WNL Psychiatric: Yes: Alert, Oriented Labs: CBC, BMP 05/15/19 19:23 05/15/19 19:23 Imaging - Results Chest X-ray: Pending (CXR 05/15/2019) Problem List - Problems (1) Hyperkalemia Assessment/Plan: Kayexalate 15G x 1 dose overnight trend K and Scr Code(s): E87.5 - HYPERKALEMIA (2) Sepsis Assessment/Plan: ID consulted Meropenem dosed in ED. Start ceftazidime 1G Q24hrs for E.Coli bacteremia trend Fever and WBC curve follow up blood and urine cultures If blood cx +, sen ddaily blood cultures until clear APAP PRN fever. IV fluid resuscitation Code(s): A41.9 - SEPSIS, UNSPECIFIED ORGANISM Qualifiers: Sepsis type: sepsis due to unspecified organism Qualified Code(s): A41.9 - Sepsis, unspecified organism (3) HLD (hyperlipidemia) Assessment/Plan: c/w home dose of lipitor Code(s): E78.5 - HYPERLIPIDEMIA, UNSPECIFIED (4) HTN (hypertension) Assessment/Plan: vasotec 5mg daily Inderal 60mg daily norvasc 10mg daily Code(s): I10 - ESSENTIAL (PRIMARY) HYPERTENSION (5) Nausea & vomiting Assessment/Plan: IV fluid hydration PRN REglan for intractable N/V encourage oral fluid intake Code(s): R11.2 - NAUSEA WITH VOMITING, UNSPECIFIED (6) T2DM (type 2 diabetes mellitus) Assessment/Plan: Diabetic diet Insulin SS Hold januvia Code(s): E11.9 - TYPE 2 DIABETES MELLITUS WITHOUT COMPLICATIONS (7) Prophylactic measure Assessment/Plan: Heparin SC TID Bowel regimen with senna/colace Fall precautions-ambulates with a walker Zantac 150mg daily seroquel 12.5mg qhs, monitor QTc Code(s): Z29.9 - ENCOUNTER FOR PROPHYLACTIC MEASURES, UNSPECIFIED Assessment/Plan DISPO: full code Visit type - Emergency Visit Emergency Visit: Yes Care time: The patient presented to the Emergency Department on the above date and was hospitalized for further evaluation of their emergent condition. - New Patient This patient is new to me today: Yes Date on this admission: 05/15/19 - Critical Care Critical Care patient: No
[2019-05-15] MEDS ORDERED: SODIUM POLYSTYRENE SULFONATE 15 GM/60 ML BOTTLE PO ONE (22:22)
[2019-05-15 22:26] LABS: ARTERIAL BLOOD GAS PCO2 30.3 mmHg (35-45)
[2019-05-15 22:27] LABS: ALLENS TEST POSITIVE; ARTERIAL BLD GAS O2 SATURATION 96.4 % (95-98); ARTERIAL BLOOD GAS BASE EXCESS -4.9 meq/l (-2-2)
[2019-05-15] MEDS ORDERED: METOCLOPRAMIDE HCL INJECTION 10 MG/2 ML VIAL IVPUSH PRN (22:37)
[2019-05-15] MEDS: INSULIN SLIDING SCALE (NOVOLOG) 1 VIAL SQ SCH (22:40)
[2019-05-15] MEDS: LACTATED RINGERS SOLUTION 1,000 ML IV SCH (23:30)
[2019-05-15] MEDS: ATORVASTATIN CA 80 MG TABLET (FP) PO SCH (23:30)
[2019-05-15] MEDS: HEPARIN NA (PORCINE) 5,000 UNITS/ML 1ML VIAL SQ SCH (23:30)
[2019-05-16] MEDS ORDERED: cefTAZidime PENTAHYDRATE 1 GM/10 ML SYRINGE (RESTRICTED TO ID) IVPUSH SCH ×2 (06:00→10:00)
[2019-05-16] MEDS: INSULIN SLIDING SCALE (NOVOLOG) 1 VIAL SQ SCH ×4 (06:34→22:08)
[2019-05-16] MEDS: HEPARIN NA (PORCINE) 5,000 UNITS/ML 1ML VIAL SQ SCH ×3 (06:34→22:01)
[2019-05-16 06:57] LABS: ARTERIAL BLD GAS O2 SATURATION 98.2 % (95-98); ARTERIAL BLOOD GAS BASE EXCESS -2.3 meq/l (-2-2); ARTERIAL BLOOD GAS PCO2 34.6 mmHg (35-45); ARTERIAL BLOOD GAS PO2 101 mmHg (80-105); ARTERIAL BLOOD GAS pH 7.41 (7.35-7.45)
[2019-05-16 06:58] LABS: ALLENS TEST POSITIVE
[2019-05-16 08:18] LABS: HEMATOCRIT 30.7 % (32.4-45.2); HEMOGLOBIN 10.6 GM/dL (10.7-15.3); MCH 32.5 pg (25.7-33.7); MCHC 34.7 g/dl (32.0-36.0); MEAN CELL VOLUME 93.8 fl (80-96); MEAN PLT VOLUME 8.4 fl (7.5-11.1); RBC 3.27 M/mm3 (3.60-5.2); RDW 12.1 % (11.6-15.6); WHITE BLOOD COUNT 7.1 K/mm3 (4.0-10.0)
[2019-05-16 09:20] LABS: PLATELET COUNT 205 K/MM3 (134-434)
[2019-05-16 09:23] LABS: ALBUMIN 2.8 g/dl (3.4-5.0); BILIRUBIN,TOTAL 0.3 mg/dL (0.2-1); BLOOD UREA NITROGEN 19.4 mg/dL (7-18); CALCIUM 8.3 mg/dL (8.5-10.1); CREATININE 1.4 mg/dL (0.55-1.3); MAGNESIUM 1.7 mg/dL (1.8-2.4); N-TERMINAL BNP 1143.4 pg/ml (5-450); PHOSPHOROUS 3.8 mg/dL (2.5-4.9); POTASSIUM 4.6 mmol/L (3.5-5.1)
--- NOTE | 2019-05-16 09:45 | CON.PULM ---
Consult Consult Specialty:: PULMONARY Referred by:: HA Reason for Consultation:: FEVER/SEPSIS - History of Present Illness Chief Complaint: FEVER/SHAKING CHILLS History of Present Illness: 88 year old female with hypertension, diabetes, hyperlipidemia, benign essential tremor, prior gram negative bacteremia secondary to urinary tract infection presents to ER with fever . Patient was discharged 10 days ago and noted to have gram-negative ada bacteremia as well as positive urinary tract infection. There is some multidrug resistance at that time. The patient started developing a fever and felt generalized weakness. The patient reported poor appetite but denies any abdominal pain or dysuria. Son decided to take her back to ED. - History Source History Provided By: Patient, Family Member, Medical Record Limitations to Obtaining History: Clinical Condition - Past Medical History [employer]: Yes: Other (S/p brain Tumor w/ resting ataxia) Cardio/Vascular: Yes: HTN, Hyperlipdemia Gastrointestinal: Yes: GERD ...: No Musculoskeletal: Yes: Osteoarthritis - Alcohol/Substance Use Hx Alcohol Use: No History of Substance Use: reports: None - Smoking History Smoking history: Never smoked Have you smoked in the past 12 months: No Aproximately how many cigarettes per day: 0 - Social History Usual Living Arrangement: Alone ADL: Family Assistance History of Recent Travel: No Home Medications - Allergies Allergies/Adverse Reactions: Allergies Allergy/AdvReac Type Severity Reaction Status Date / Time No Known Allergies Allergy Verified 05/15/19 18:54 - Home Medications Home Medications: Ambulatory Orders Atorvastatin Ca [Lipitor] 10 mg PO HS 02/25/12 Enalapril Maleate [Vasotec -] 5 mg PO DAILY 02/25/12 Amlodipine Besylate [Norvasc -] 10 mg PO DAILY #30 tablet 08/01/16 Sitagliptin Phosphate [Januvia] 25 mg PO DAILY #30 tablet 08/01/16 Ascorbate Calcium [Vitamin C] 500 mg PO DAILY 04/29/19 Cholecalciferol (Vitamin D3) [Vitamin D3] 1,000 unit PO DAILY 04/29/19 Propranolol HCl [Propranolol HCl ER] 60 mg PO DAILY 04/29/19 Acetaminophen [Tylenol .Regular Strength -] 650 mg PO Q6H PRN tablet 05/06/19 Quetiapine Fumarate [Seroquel -] 12.5 mg PO DAILY #30 tablet 05/06/19 Ranitidine [Zantac -] 150 mg PO DAILY #30 tablet 05/06/19 Sulfamethoxazole/Trimethoprim [Bactrim DS -] 1 each PO BID #14 tablet 05/06/19 Family Disease History - Family Disease History Family History: Unremarkable Review of Systems - Review of Systems Constitutional: reports: Fever, Lethargy, Loss of Appetite Neck: denies: Decreased ROM Cardiovascular: denies: Chest Pain Respiratory: denies: Cough Gastrointestinal: denies: Abdominal Pain Genitourinary: denies: Burning Physical Exam Vital Sings: Vital Signs Temperature 97.4 F L 05/16/19 06:00 Pulse Rate 57 L 05/16/19 06:00 Respiratory Rate 20 05/16/19 06:00 Blood Pressure 137/74 05/16/19 06:00 O2 Sat by Pulse Oximetry (%) 100 05/15/19 21:17 Constitutional: Yes: Anxious Eyes: Yes: EOM Intact HENT: Yes: Normocephalic Neck: Yes: Trachea Midline Cardiovascular: Yes: S1, S2 Respiratory: Yes: CTA Bilaterally Gastrointestinal: Yes: Normal Bowel Sounds, Soft Edema: No Neurological: Yes: Alert Labs: CBC, BMP 05/16/19 07:30 05/16/19 07:15 ABG Results ABG pH 7.41 (7.35-7.45) 05/16/19 06:30 ABG pCO2 at Pt Temp 34.6 mmHg (35-45) L 05/16/19 06:30 ABG pO2 at Pt Temp 101 mmHg (80-105) 05/16/19 06:30 ABG HCO3 21.4 mmol/L (22-27) L 05/16/19 06:30 ABG O2 Sat (Measured) 98.2 % (95-98) H 05/16/19 06:30 ABG O2 Content 14.2 % vol (15-22) L 05/16/19 06:30 ABG Base Excess -2.3 meq/l (-2-2) L 05/16/19 06:30 Imaging - Results Chest X-ray: Report Reviewed, Image Reviewed Problem List - Problems (1) Sepsis Code(s): A41.9 - SEPSIS, UNSPECIFIED ORGANISM Qualifiers: Sepsis type: sepsis due to unspecified organism Qualified Code(s): A41.9 - Sepsis, unspecified organism (2) HLD (hyperlipidemia) Code(s): E78.5 - HYPERLIPIDEMIA, UNSPECIFIED (3) HTN (hypertension) Code(s): I10 - ESSENTIAL (PRIMARY) HYPERTENSION (4) UTI (urinary tract infection) Code(s): N39.0 - URINARY TRACT INFECTION, SITE NOT SPECIFIED Qualifiers: Urinary tract infection type: site unspecified Hematuria presence: without hematuria Qualified Code(s): N39.0 - Urinary tract infection, site not specified Assessment/Plan RECENT HOSPITALIZATION FOR E. COLI BACTEREMIA 2/2 UROSEPSIS DOCUMENTED FEVER WHILE AT HOME WITH SHAKING CHILLS MULTIPLE CO-MORBID CONDITIONS ALL CULTURES PENDING ANTIBIOTICS RESTARTED/ID CONSULT REQUESTED WILL CONTINUE HOME MEDS WILL DISCUSS WITH DAISY HANLEY MD
[2019-05-16] MEDS: amLODIPine BESYLATE 10 MG TABLET (FP) PO SCH (10:22)
[2019-05-16] MEDS: RANITIDINE HCL 150 MG TABLET (FP) PO SCH (10:22)
[2019-05-16] MEDS: QUEtiapine FUMARATE 25 MG TABLET (FP) PO SCH (10:22)
[2019-05-16] MEDS: ASCORBIC ACID 500 MG TABLET (FP) PO SCH (10:22)
[2019-05-16] MEDS: CHOLECALCIFEROL (VIT D3) 1,000 UNIT (25 MCG) TABLET PO SCH (10:22)
--- NOTE | 2019-05-16 10:31 | PN ---
Progress Note, Physician Chief Complaint: ESBL UTI Sepsis - Current Medication List Current Medications: Active Medications Acetaminophen (Tylenol -) 650 mg PO Q6H PRN PRN Reason: FEVER Amlodipine Besylate (Norvasc -) 10 mg PO DAILY [facility] Last Admin: 05/16/19 10:22 Dose: 10 mg Ascorbic Acid (Vitamin C -) 500 mg PO DAILY [facility] Last Admin: 05/16/19 10:22 Dose: 500 mg Atorvastatin Calcium (Lipitor -) 10 mg PO HS [facility] Last Admin: 05/15/19 23:30 Dose: 10 mg Ceftazidime (Fortaz (Restricted To Id) -) 1 gm IVPUSH DAILY [facility] Cholecalciferol (Vitamin D3 -) 1,000 unit PO DAILY [facility] Last Admin: 05/16/19 10:22 Dose: 1,000 unit Docusate Sodium (Colace -) 100 mg PO Q8H PRN PRN Reason: CONSTIPATION Enalapril Maleate (Vasotec -) 5 mg PO DAILY [facility] Heparin Sodium (Porcine) (Heparin -) 5,000 unit SQ TID [facility] Last Admin: 05/16/19 06:34 Dose: 5,000 unit Lactated Ringer's (Lactated Ringers Solution) 1,000 mls @ 42 mls/hr IV ASDIR [facility] Last Admin: 05/15/19 23:30 Dose: 42 mls/hr Insulin Aspart (Novolog Vial Sliding Scale -) 1 vial SQ ACHS [facility]; Protocol Last Admin: 05/16/19 06:34 Dose: Not Given Metoclopramide HCl (Reglan Injection -) 10 mg IVPUSH Q8H PRN PRN Reason: NAUSEA AND/OR VOMITING Propranolol HCl (Inderal La -) 60 mg PO DAILY [facility] Quetiapine Fumarate (Seroquel -) 12.5 mg PO DAILY [facility] Last Admin: 05/16/19 10:22 Dose: 12.5 mg Ranitidine HCl (Zantac -) 150 mg PO DAILY [facility] Last Admin: 05/16/19 10:22 Dose: 150 mg Senna (Senna -) 2 tab PO HS PRN PRN Reason: CONSTIPATION - Objective Vital Signs: Vital Signs Temperature 97.4 F L 05/16/19 06:00 Pulse Rate 57 L 05/16/19 06:00 Respiratory Rate 20 05/16/19 06:00 Blood Pressure 137/74 05/16/19 06:00 O2 Sat by Pulse Oximetry (%) 100 05/15/19 21:17 Constitutional: Yes: Well Nourished, No Distress, Calm Cardiovascular: Yes: Regular Rate and Rhythm Respiratory: Yes: Regular Gastrointestinal: Yes: WNL Genitourinary: Yes: Incontinence Musculoskeletal: Yes: WNL Extremities: Yes: WNL Edema: No Peripheral Pulses WNL: Yes Neurological: Yes: Alert, Oriented, Pre-Existing Deficit Psychiatric: Yes: Alert, Oriented Labs: CBC, BMP 05/16/19 07:30 05/16/19 07:15 INR, PTT INR 1.18 (0.83-1.09) H 05/15/19 19:23 Problem List - Problems (1) PATRIC (acute kidney injury) Assessment/Plan: -Trend cr -Nephrology consult -Continue IVF Code(s): N17.9 - ACUTE KIDNEY FAILURE, UNSPECIFIED (2) Sepsis Assessment/Plan: -Fever overnight -ID consult -Cultures pending -Started on IV abx -Tylenol for fever >100.0F Code(s): A41.9 - SEPSIS, UNSPECIFIED ORGANISM Qualifiers: Sepsis type: sepsis due to unspecified organism Qualified Code(s): A41.9 - Sepsis, unspecified organism (3) T2DM (type 2 diabetes mellitus) Assessment/Plan: -BGM AC HS -ISS -Last a1c at 8.9 on 04/30/19 -Diabetic low sodium diet -Januvia on hold due to PATRIC -Start Levemir 10 U QAM -Endocrine consult Code(s): E11.9 - TYPE 2 DIABETES MELLITUS WITHOUT COMPLICATIONS (4) UTI (urinary tract infection) Assessment/Plan: -Fever overnight -ID consult -Cultures pending -Started on IV abx -Tylenol for fever >100.0F -Continue IVF Code(s): N39.0 - URINARY TRACT INFECTION, SITE NOT SPECIFIED Qualifiers: Urinary tract infection type: site unspecified Hematuria presence: without hematuria Qualified Code(s): N39.0 - Urinary tract infection, site not specified Assessment/Plan see problem list
--- NOTE | 2019-05-16 13:44 | PN ---
Progress Note (short form) - Note Progress Note: ID CONSULT DICTATED SEPSIS R/O RECURRENT GRAM NEGATIVE SEPSIS AWAIT C/S CONTINUE CEFTAZIDIME
[2019-05-16] MEDS: CEFTAZIDIME PENTAHYDRATE 1 GM in DEXTROSE 5%-WATER 100 ML IVPB SCH (17:30)
[2019-05-16] MEDS: ENALAPRIL MALEATE 5 MG TABLET (FP) PO SCH (17:30)
[2019-05-16] MEDS ORDERED: PT OWN MED DRAWER 7, Y5N ONE (18:41)
[2019-05-16] MEDS: LACTATED RINGERS SOLUTION 1,000 ML IV SCH (22:00)
--- NOTE | 2019-05-16 23:34 | CONSULT ---
Consult Consult Specialty:: ENDOCRINE Referred by:: BRIANNA FULLER Reason for Consultation:: DIABETES MELLITUS UNCONTROLLED - History of Present Illness Chief Complaint: HIGH SUGARS AT HOME History of Present Illness: 85-year-old female with a past medical history of DM2,HTN, , HLD, PSHx of: Brain tumor removed (benign) who was hospitalized at [facility] with UTI, admitted with fever and chills,weakness and high sugars,she has had frequency, and increased thirst,dry mouth. she denies chest pain cough,or hypoglycemia.she has taken pills for diabetes but feels sugars still high. - Past Medical History ASSISTANT TO THE PRESIDENT: Yes: Other (S/p brain Tumor w/ resting ataxia) Cardio/Vascular: Yes: HTN, Hyperlipdemia Gastrointestinal: Yes: GERD ...: No Musculoskeletal: Yes: Osteoarthritis - Alcohol/Substance Use Hx Alcohol Use: No History of Substance Use: reports: None - Smoking History Smoking history: Never smoked Have you smoked in the past 12 months: No Aproximately how many cigarettes per day: 0 - Social History Usual Living Arrangement: Alone ADL: Family Assistance History of Recent Travel: No Home Medications - Allergies Allergies/Adverse Reactions: Allergies Allergy/AdvReac Type Severity Reaction Status Date / Time No Known Allergies Allergy Verified 05/15/19 18:54 - Home Medications Home Medications: Ambulatory Orders Atorvastatin Ca [Lipitor] 10 mg PO HS 02/25/12 Enalapril Maleate [Vasotec -] 5 mg PO DAILY 02/25/12 Amlodipine Besylate [Norvasc -] 10 mg PO DAILY #30 tablet 08/01/16 Sitagliptin Phosphate [Januvia] 25 mg PO DAILY #30 tablet 08/01/16 Ascorbate Calcium [Vitamin C] 500 mg PO DAILY 04/29/19 Cholecalciferol (Vitamin D3) [Vitamin D3] 1,000 unit PO DAILY 04/29/19 Propranolol HCl [Propranolol HCl ER] 60 mg PO DAILY 04/29/19 Acetaminophen [Tylenol .Regular Strength -] 650 mg PO Q6H PRN tablet 05/06/19 Quetiapine Fumarate [Seroquel -] 12.5 mg PO DAILY #30 tablet 05/06/19 Ranitidine [Zantac -] 150 mg PO DAILY #30 tablet 05/06/19 Sulfamethoxazole/Trimethoprim [Bactrim DS -] 1 each PO BID #14 tablet 05/06/19 Review of Systems - Review of Systems Constitutional: reports: Weakness Eyes: reports: Blurred Vision HENT: reports: No Symptoms Neck: reports: No Symptoms Respiratory: reports: No Symptoms Gastrointestinal: reports: Bloating, Nausea Genitourinary: reports: Burning, Frequency Breasts: reports: No Symptoms Reported Musculoskeletal: reports: Joint Pain, Joint Swelling Neurological: reports: Tremors, Weakness Endocrine: reports: No Symptoms Physical Exam Vital Signs: Vital Signs Temperature 100.3 F H 05/16/19 21:00 Pulse Rate 72 05/16/19 21:00 Respiratory Rate 18 05/16/19 21:00 Blood Pressure 150/60 05/16/19 21:00 O2 Sat by Pulse Oximetry (%) 100 05/16/19 09:00 Eyes: Yes: EOM Intact HENT: Yes: Normocephalic Neck: Yes: Trachea Midline Respiratory: Yes: CTA Bilaterally Gastrointestinal: Yes: Normal Bowel Sounds ...Rectal Exam: Yes: Deferred Renal/: Yes: WNL Musculoskeletal: Yes: WNL Extremities: Yes: WNL Edema: No Integumentary: Yes: WNL Neurological: Yes: Alert, Numbness, Tingling Psychiatric: Yes: Alert, Oriented Labs: CBC, BMP 05/16/19 07:30 05/16/19 07:15 Problem List - Problems (1) Sepsis Code(s): A41.9 - SEPSIS, UNSPECIFIED ORGANISM Qualifiers: Sepsis type: sepsis due to unspecified organism Qualified Code(s): A41.9 - Sepsis, unspecified organism (2) DVT prophylaxis Code(s): THA2308 - (3) Dehydration Code(s): E86.0 - DEHYDRATION (4) HLD (hyperlipidemia) Code(s): E78.5 - HYPERLIPIDEMIA, UNSPECIFIED Assessment/Plan Current Active Problems diabetes mellitus hyperglycemia,type 2 PATRIC (acute kidney injury) (Acute) Hyperkalemia (Acute) Prophylactic measure (Acute) Sepsis (Acute) Abnormal Lab Results 05/16/19 05/16/19 05/16/19 06:30 07:15 07:30 RBC 3.27 L Hgb 10.6 L Hct 30.7 L ABG pCO2 at Pt Temp 34.6 L ABG HCO3 21.4 L ABG O2 Sat (Measured) 98.2 H ABG O2 Content 14.2 L ABG Base Excess -2.3 L BUN 19.4 H Creatinine 1.4 H Calcium 8.3 L Magnesium 1.7 L AST 13 L B-Natriuretic Peptide 1143.4 H Total Protein 6.0 L Albumin 2.8 L Laboratory Results - last 24 hr 05/16/19 05/16/19 05/16/19 06:27 06:30 07:15 WBC RBC Hgb Hct MCV MCH MCHC RDW Plt Count MPV Anticoagulation Therapy No Result Required. Puncture Site Right brachial ABG pH 7.41 ABG pCO2 at Pt Temp 34.6 L ABG pO2 at Pt Temp 101 ABG HCO3 21.4 L ABG O2 Sat (Measured) 98.2 H ABG O2 Content 14.2 L ABG Base Excess -2.3 L Felix Test Positive O2 Delivery Device Nasal cannula Oxygen Flow Rate 2l Vent Mode No Result Required. Vent Rate No Result Required. Mechanical Rate No Result Required. Pressure Support Vent No Result Required. Sodium 136 Potassium 4.6 Chloride 104 Carbon Dioxide 22 Anion Gap 10 BUN 19.4 H Creatinine 1.4 H Est GFR (CKD-EPI)AfAm 39.06 Est GFR (CKD-EPI)NonAf 33.70 POC Glucometer 87 Random Glucose 84 Calcium 8.3 L Phosphorus 3.8 Magnesium 1.7 L Total Bilirubin 0.3 AST 13 L ALT 18 Alkaline Phosphatase 103 B-Natriuretic Peptide 1143.4 H Total Protein 6.0 L Albumin 2.8 L Total Amylase 29 Lipase 108 05/16/19 05/16/19 05/16/19 07:30 11:30 17:10 WBC 7.1 RBC 3.27 L Hgb 10.6 L Hct 30.7 L MCV 93.8 MCH 32.5 MCHC 34.7 RDW 12.1 Plt Count 205 MPV 8.4 Anticoagulation Therapy Puncture Site ABG pH ABG pCO2 at Pt Temp ABG pO2 at Pt Temp ABG HCO3 ABG O2 Sat (Measured) ABG O2 Content ABG Base Excess Felix Test O2 Delivery Device Oxygen Flow Rate Vent Mode Vent Rate Mechanical Rate Pressure Support Vent Sodium Potassium Chloride Carbon Dioxide Anion Gap BUN Creatinine Est GFR (CKD-EPI)AfAm Est GFR (CKD-EPI)NonAf POC Glucometer 154 149 Random Glucose Calcium Phosphorus Magnesium Total Bilirubin AST ALT Alkaline Phosphatase B-Natriuretic Peptide Total Protein Albumin Total Amylase Lipase 05/16/19 21:58 WBC RBC Hgb Hct MCV MCH MCHC RDW Plt Count MPV Anticoagulation Therapy Puncture Site ABG pH ABG pCO2 at Pt Temp ABG pO2 at Pt Temp ABG HCO3 ABG O2 Sat (Measured) ABG O2 Content ABG Base Excess Felix Test O2 Delivery Device Oxygen Flow Rate Vent Mode Vent Rate Mechanical Rate Pressure Support Vent Sodium Potassium Chloride Carbon Dioxide Anion Gap BUN Creatinine Est GFR (CKD-EPI)AfAm Est GFR (CKD-EPI)NonAf POC Glucometer 210 Random Glucose Calcium Phosphorus Magnesium Total Bilirubin AST ALT Alkaline Phosphatase B-Natriuretic Peptide Total Protein Albumin Total Amylase Lipase plan: given limitation use insulin and patient reluctance ck hba1c glimiperide 4mg daily januvia 100mg daily will benefit from vns nutrition consult trulicity weekly dose as outpatient.
[2019-05-16] MEDS: ATORVASTATIN CA 80 MG TABLET (FP) PO SCH (23:40)
[2019-05-17] MEDS ORDERED: PT OWN MED DRAWER 7, Y5N ONE ×3 (02:31→17:30)
[2019-05-17] MEDS: CEFTAZIDIME PENTAHYDRATE 1 GM in DEXTROSE 5%-WATER 100 ML IVPB SCH ×3 (02:34→17:52)
[2019-05-17] MEDS: LACTATED RINGERS SOLUTION 1,000 ML IV SCH (04:14)
[2019-05-17] MEDS: HEPARIN NA (PORCINE) 5,000 UNITS/ML 1ML VIAL SQ SCH ×3 (05:43→21:37)
[2019-05-17] MEDS: INSULIN SLIDING SCALE (NOVOLOG) 1 VIAL SQ SCH ×4 (06:29→21:40)
[2019-05-17] MEDS: GLIMEPIRIDE 4 MG TABLET (FP) PO SCH (06:31)
[2019-05-17] MEDS ORDERED: INSULIN (LEVEMIR) 100 UNITS/ML UNITS SQ SCH (07:00)
[2019-05-17 08:56] VITALS: BMI 24.9
--- NOTE | 2019-05-17 08:56 | CON.NEP ---
Consult Consult Specialty:: nephrology - History of Present Illness Chief Complaint: uti History of Present Illness: 88 year old female with hypertension, diabetes, hyperlipidemia, prior bacteremia secondary to urinary tract infection presents with fever since today. Patient was recently here in April 2019 and noted to have gram-negative ada bacteremia as well as positive urinary tract infection. There is some multidrug resistance at that time. The patient started developing a fever today and felt generalized weakness. The patient reported poor appetite but denies any abdominal pain or dysuria. 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 (S/p brain Tumor w/ resting ataxia) Cardio/Vascular: Yes: HTN, Hyperlipdemia Gastrointestinal: Yes: GERD ...: No Musculoskeletal: Yes: Osteoarthritis - Alcohol/Substance Use Hx Alcohol Use: No History of Substance Use: reports: None - Smoking History Smoking history: Never smoked Have you smoked in the past 12 months: No Aproximately how many cigarettes per day: 0 - Social History Usual Living Arrangement: Alone ADL: Family Assistance History of Recent Travel: No Home Medications - Allergies Allergies/Adverse Reactions: Allergies Allergy/AdvReac Type Severity Reaction Status Date / Time No Known Allergies Allergy Verified 05/15/19 18:54 - Home Medications Home Medications: Ambulatory Orders Atorvastatin Ca [Lipitor] 10 mg PO HS 02/25/12 Enalapril Maleate [Vasotec -] 5 mg PO DAILY 02/25/12 Amlodipine Besylate [Norvasc -] 10 mg PO DAILY #30 tablet 08/01/16 Sitagliptin Phosphate [Januvia] 25 mg PO DAILY #30 tablet 08/01/16 Ascorbate Calcium [Vitamin C] 500 mg PO DAILY 04/29/19 Cholecalciferol (Vitamin D3) [Vitamin D3] 1,000 unit PO DAILY 04/29/19 Propranolol HCl [Propranolol HCl ER] 60 mg PO DAILY 04/29/19 Acetaminophen [Tylenol .Regular Strength -] 650 mg PO Q6H PRN tablet 05/06/19 Quetiapine Fumarate [Seroquel -] 12.5 mg PO DAILY #30 tablet 05/06/19 Ranitidine [Zantac -] 150 mg PO DAILY #30 tablet 05/06/19 Sulfamethoxazole/Trimethoprim [Bactrim DS -] 1 each PO BID #14 tablet 05/06/19 Review of Systems - Review of Systems Constitutional: reports: Weakness Eyes: reports: No Symptoms HENT: reports: No Symptoms Neck: reports: No Symptoms Cardiovascular: reports: No Symptoms Respiratory: reports: No Symptoms Gastrointestinal: reports: No Symptoms Genitourinary: reports: Burning Breasts: reports: No Symptoms Reported Musculoskeletal: reports: No Symptoms Integumentary: reports: No Symptoms Neurological: reports: No Symptoms Endocrine: reports: No Symptoms Hematology/Lymphatic: reports: No Symptoms Psychiatric: reports: No Symptoms Nephrology Consult - Height Height: 4 ft 11 in - Weight Weight: 123 lb 9 oz - BMI Body Mass Index (BMI): 24.9 - Lab Results CBC,BMP: CBC, BMP 05/16/19 07:30 05/16/19 07:15 Anion Gap: Anion Gap Anion Gap 10 MMOL/L (8-16) 05/16/19 07:15 - Imaging Chest X-ray: Report Reviewed (an element of congestion can not be excluded) - Physical Examination Vital Signs: Vital Signs Temperature 98.4 F 05/17/19 06:00 Pulse Rate 54 L 05/17/19 06:00 Respiratory Rate 18 05/17/19 06:00 Blood Pressure 144/74 05/17/19 06:00 O2 Sat by Pulse Oximetry (%) 97 05/16/19 21:00 Constitutional: Yes: Well Nourished, No Distress, Calm Eyes: Yes: Conjunctiva Clear, EOM Intact HENT: Yes: Atraumatic, Normocephalic Neck: Yes: Supple, Trachea Midline Cardiovascular: Yes: Regular Rate and Rhythm, Murmur Respiratory: Yes: Regular, CTA Bilaterally Gastrointestinal: Yes: Normal Bowel Sounds, Soft Renal/: Yes: WNL Musculoskeletal: Yes: WNL Extremities: Yes: WNL Edema: No Neurological: Yes: Alert, Oriented Psychiatric: Yes: Alert, Oriented Assessment/Plan IMPRESSION pt has ckd which seems to have dropped back to her baseline Its possible her kidney function worsened from volume depletion though bactrim can cause hyperkalemia and zeenat as well likely has diabetic nephropathy has microscopic hematuria previous e coli, current cultures neg PLAN would keep off bactrim gentle hydration monitor renal function would consider urology to eval hematuria f/u culturees MV
--- NOTE | 2019-05-17 09:19 | PN ---
Progress Note, Physician Chief Complaint: ESBL UTI Sepsis History of Present Illness: NAD low grade temp overnight On IV abx Seen by Nephrology and endocrinology - Current Medication List Current Medications: Active Medications Acetaminophen (Tylenol -) 650 mg PO Q6H PRN PRN Reason: FEVER Last Admin: 05/16/19 20:58 Dose: 650 mg Amlodipine Besylate (Norvasc -) 10 mg PO DAILY [facility] Last Admin: 05/16/19 10:22 Dose: 10 mg Ascorbic Acid (Vitamin C -) 500 mg PO DAILY [facility] Last Admin: 05/16/19 10:22 Dose: 500 mg Atorvastatin Calcium (Lipitor -) 10 mg PO [facility] Cholecalciferol (Vitamin D3 -) 1,000 unit PO DAILY [facility] Last Admin: 05/16/19 10:22 Dose: 1,000 unit Docusate Sodium (Colace -) 100 mg PO Q8H PRN PRN Reason: CONSTIPATION Enalapril Maleate (Vasotec -) 5 mg PO DAILY [facility] Last Admin: 05/16/19 17:30 Dose: 5 mg Glimepiride (Amaryl -) 4 mg PO DAILY@0700 [facility] Last Admin: 05/17/19 06:31 Dose: 4 mg Heparin Sodium (Porcine) (Heparin -) 5,000 unit SQ TID [facility] Last Admin: 05/17/19 05:43 Dose: 5,000 unit Lactated Ringer's (Lactated Ringers Solution) 1,000 mls @ 42 mls/hr IV ASDIR [facility] Last Admin: 05/17/19 04:14 Dose: 42 mls/hr Ceftazidime 1 gm/ Dextrose 100 mls @ 200 mls/hr IVPB Q8H-IV [facility]; Protocol Last Admin: 05/17/19 02:34 Dose: 200 mls/hr Insulin Aspart (Novolog Vial Sliding Scale -) 1 vial SQ ACHS [facility]; Protocol Last Admin: 05/17/19 06:29 Dose: Not Given Metoclopramide HCl (Reglan Injection -) 10 mg IVPUSH Q8H PRN PRN Reason: NAUSEA AND/OR VOMITING Propranolol HCl (Inderal La -) 60 mg PO DAILY [facility] Last Admin: 05/16/19 17:30 Dose: 60 mg Quetiapine Fumarate (Seroquel -) 12.5 mg PO DAILY [facility] Last Admin: 05/16/19 10:22 Dose: 12.5 mg Ranitidine HCl (Zantac -) 150 mg PO DAILY [facility] Last Admin: 05/16/19 10:22 Dose: 150 mg Senna (Senna -) 2 tab PO HS PRN PRN Reason: CONSTIPATION Sitagliptin Phosphate (Januvia -) 50 mg PO DAILY@0700 [facility] - Objective Vital Signs: Vital Signs Temperature 98.4 F 05/17/19 06:00 Pulse Rate 54 L 05/17/19 06:00 Respiratory Rate 18 05/17/19 06:00 Blood Pressure 144/74 05/17/19 06:00 O2 Sat by Pulse Oximetry (%) 97 05/16/19 21:00 Constitutional: Yes: Well Nourished, No Distress, Calm Cardiovascular: Yes: Regular Rate and Rhythm Respiratory: Yes: Regular Gastrointestinal: Yes: Normal Bowel Sounds, Soft Musculoskeletal: Yes: WNL Extremities: Yes: WNL Edema: No Peripheral Pulses WNL: Yes Neurological: Yes: Alert, Pre-Existing Deficit Labs: CBC, BMP 05/16/19 07:30 05/16/19 07:15 INR, PTT INR 1.18 (0.83-1.09) H 05/15/19 19:23 Problem List - Problems (1) PATRIC (acute kidney injury) Assessment/Plan: -Trend cr -Nephrology consult -Continue IVF Code(s): N17.9 - ACUTE KIDNEY FAILURE, UNSPECIFIED (2) Sepsis Assessment/Plan: -Fever overnight -ID consult -Cultures pending -Started on IV abx -Tylenol for fever >100.0F Code(s): A41.9 - SEPSIS, UNSPECIFIED ORGANISM Qualifiers: Sepsis type: sepsis due to unspecified organism Qualified Code(s): A41.9 - Sepsis, unspecified organism (3) T2DM (type 2 diabetes mellitus) Assessment/Plan: -BGM AC HS -ISS -Last a1c at 7.9 on 04/30/19 -Diabetic low sodium diet -Restart Januvia on a lower dose -Started on Glimepride 4 mg po daily -Endocrine consult Code(s): E11.9 - TYPE 2 DIABETES MELLITUS WITHOUT COMPLICATIONS (4) UTI (urinary tract infection) Assessment/Plan: -Fever overnight -ID consult -Cultures pending -Started on IV abx -Tylenol for fever >100.0F -Continue IVF Code(s): N39.0 - URINARY TRACT INFECTION, SITE NOT SPECIFIED Qualifiers: Urinary tract infection type: site unspecified Hematuria presence: without hematuria Qualified Code(s): N39.0 - Urinary tract infection, site not specified Assessment/Plan see problem list Physical therapy
[2019-05-17] MEDS ORDERED: ALBUTEROL SO4 2.5/IPRATROPIUM 0.5 INH SOL 3 ML VIAL.NEB. NEB PRN ×2 (09:27→10:57)
[2019-05-17] MEDS ORDERED: cefTAZidime PENTAHYDRATE 1 GM/10 ML SYRINGE (RESTRICTED TO ID) IVPUSH SCH (10:00)
[2019-05-17] MEDS: QUEtiapine FUMARATE 25 MG TABLET (FP) PO SCH (10:49)
[2019-05-17] MEDS: ASCORBIC ACID 500 MG TABLET (FP) PO SCH (10:49)
[2019-05-17] MEDS: CHOLECALCIFEROL (VIT D3) 1,000 UNIT (25 MCG) TABLET PO SCH (10:49)
[2019-05-17] MEDS: amLODIPine BESYLATE 10 MG TABLET (FP) PO SCH (10:49)
[2019-05-17] MEDS: RANITIDINE HCL 150 MG TABLET (FP) PO SCH (10:49)
[2019-05-17] MEDS: ENALAPRIL MALEATE 5 MG TABLET (FP) PO SCH (10:50)
[2019-05-17] MEDS: sitaGLIPtin PHOSPHATE 50 MG TABLET PO SCH (10:53)
--- NOTE | 2019-05-17 11:02 | PN ---
Progress Note (short form) - Note Progress Note: PULMONARY OOB TO CHAIR FEVER LAST PM/ TRENDING DOWN ANTIBIOTIC DAY #2 CULTURES NEGATIVE THUS FAR ANICTERIC CLEAR B/L LUNG [place] S1S2 BS+ NO EDEMA LABS/MEDS/NOTES REVIEWED ID F/U APPRECIATED RECENT HOSPITALIZATION FOR E.COLI BACTEREMIA 2/2 UROSEPSIS COMPLETED ABS COURSE WHILE AT HOME 10 DAYS LATER FEVER RETURNS WITH SHAKING CHILLS RENAL US NEGATIVE PRIOR TO DISCHARGE MUTIPLE CO-MORBID CONDITIONS CONTINUE ABS/FOLLOW CULTURES ID RE-EVAL WILL SPEAK WITH FAMILY R DAYAN ALY Problem List - Problems (1) Sepsis Code(s): A41.9 - SEPSIS, UNSPECIFIED ORGANISM Qualifiers: Sepsis type: sepsis due to unspecified organism Qualified Code(s): A41.9 - Sepsis, unspecified organism (2) HLD (hyperlipidemia) Code(s): E78.5 - HYPERLIPIDEMIA, UNSPECIFIED (3) HTN (hypertension) Code(s): I10 - ESSENTIAL (PRIMARY) HYPERTENSION (4) UTI (urinary tract infection) Code(s): N39.0 - URINARY TRACT INFECTION, SITE NOT SPECIFIED Qualifiers: Urinary tract infection type: site unspecified Hematuria presence: without hematuria Qualified Code(s): N39.0 - Urinary tract infection, site not specified
--- NOTE | 2019-05-17 13:42 | EKG ---
Test Reason : Blood Pressure : / mmHG Vent. Rate : 065 BPM Atrial Rate : 065 BPM P-R Int : 192 ms QRS Dur : 112 ms QT Int : 426 ms P-R-T Axes : 044 -18 027 degrees QTc Int : 443 ms NORMAL SINUS RHYTHM LEFT ATRIAL ENLARGEMENT NON-SPECIFIC INTRA-VENTRICULAR CONDUCTION DELAY ABNORMAL ECG Confirmed by MD ARVIN, CORNEL ([id number]) on 05/17/2019 1:42:08 PM Referred By: Confirmed By:CORNEL SHERIDAN MD
[2019-05-17] MEDS ORDERED: ALBUTEROL SO4 2.5/IPRATROPIUM 0.5 INH SOL 3 ML VIAL.NEB. NEB SCH (14:00)
--- NOTE | 2019-05-17 14:10 | CONS ---
DATE OF CONSULTATION: DATE OF DICTATION: 05/17/2019 The patient is an 88-year-old female who is evaluated for sepsis. History was obtained from the chart as well as family members present at the time of examination. She was recently hospitalized at [facility] from April 29 through May 06 with E coli bacteremia/sepsis secondary to urinary tract infection. She received a 1 week course of IV antibiotic therapy and was discharged home on oral antibiotic therapy for an additional week. The patient completed her course of antibiotic therapy. She was noted by her son to have shaking chills and more lethargic. She had apparently had decreased oral intake. She was brought to the emergency room, where she was evaluated. Her temperature was noted to be 102.7. Cultures were obtained. She was empirically treated with antibiotics. At the present time, she has no focal complaints. She denies any chest pain, shortness of breath, cough, or sputum production. No vomiting or diarrhea. No dysuria or hematuria. She denies any insect or animal bites or scratches. Past medical history positive for hypertension, hyperlipidemia, diabetes mellitus, history of stroke. PAST SURGICAL HISTORY: Status post acoustic neuroma resection. No known allergies. MEDICATIONS: Lipitor, enalapril, Norvasc, Januvia, propranolol, Seroquel. SOCIAL HISTORY: Lives at home in the community. Nonsmoker, nondrinker. SYSTEMS REVIEW: Neurologic: No loss of consciousness, seizure activity, or focal weakness. Cardiac: Negative chest pain or palpitations. Respiratory: Negative cough or sputum production. Gastrointestinal: Negative vomiting or diarrhea. Genitourinary: Negative for urinary tract infection. LABORATORY DATA: White blood cell count 12.0, hematocrit 30.7, platelets 205. Creatinine 1.4. Urinalysis: Negative leukocyte esterase. Cultures are pending. Chest x-ray negative for acute infiltrate. PHYSICAL EXAMINATION: General: She is awake and alert, she is ambulatory, in no acute distress. Vital Signs: Temperature 98.7. Blood pressure 129/61. Pulse 60, regular. Respirations 20 per minute. T-max 102.7. Eyes: Sclerae anicteric. Heart Sounds: S1, S2. Lungs: Clear. Abdomen: Soft, obese. No tenderness. No suprapubic or flank tenderness. Extremities: Negative for edema. IMPRESSION: 1. Fever, rule out sepsis. 2. Rule out recurrent gram-negative sepsis. 3. Leukocytosis. 4. Azotemia. Await culture results. Empiric antibiotic coverage with ceftazidime 1 g IV piggyback every 8 hours, pending sepsis workup. Will follow. Thank you for the kind referral. LOC GRIGGS M.D. [id number]
[2019-05-17] MEDS ORDERED: INSULIN (NOVOLOG) ASPART 100 UNITS/ML 10ML VIAL ONE (21:31)
[2019-05-17] MEDS: ATORVASTATIN CA 10 MG TABLET (FP) PO SCH (21:37)
--- NOTE | 2019-05-17 23:56 | PN ---
Progress Note, Physician History of Present Illness: AWAKE, ALERT OOB IN CHAIR OFFERS NO COMPLAINTS TEMPS DOWN AFEBRILE DENIES DYSURIA - Current Medication List Current Medications: Active Medications Acetaminophen (Tylenol -) 650 mg PO Q6H PRN PRN Reason: FEVER Last Admin: 05/16/19 20:58 Dose: 650 mg Albuterol/Ipratropium (Duoneb -) 1 amp NEB Q8H PRN PRN Reason: ASTHMA Amlodipine Besylate (Norvasc -) 10 mg PO DAILY [facility] Last Admin: 05/17/19 10:49 Dose: 10 mg Ascorbic Acid (Vitamin C -) 500 mg PO DAILY [facility] Last Admin: 05/17/19 10:49 Dose: 500 mg Atorvastatin Calcium (Lipitor -) 10 mg PO HS [facility] Last Admin: 05/17/19 21:37 Dose: 10 mg Cholecalciferol (Vitamin D3 -) 1,000 unit PO DAILY [facility] Last Admin: 05/17/19 10:49 Dose: 1,000 unit Docusate Sodium (Colace -) 100 mg PO Q8H PRN PRN Reason: CONSTIPATION Enalapril Maleate (Vasotec -) 5 mg PO DAILY [facility] Last Admin: 05/17/19 10:50 Dose: 5 mg Glimepiride (Amaryl -) 4 mg PO DAILY@0700 [facility] Last Admin: 05/17/19 06:31 Dose: 4 mg Heparin Sodium (Porcine) (Heparin -) 5,000 unit SQ TID [facility] Last Admin: 05/17/19 21:37 Dose: 5,000 unit Ceftazidime 1 gm/ Dextrose 100 mls @ 200 mls/hr IVPB Q8H-IV [facility]; Protocol Last Admin: 05/17/19 17:52 Dose: 200 mls/hr Insulin Aspart (Novolog Vial Sliding Scale -) 1 vial SQ ACHS [facility]; Protocol Last Admin: 05/17/19 21:40 Dose: 2 units Metoclopramide HCl (Reglan Injection -) 10 mg IVPUSH Q8H PRN PRN Reason: NAUSEA AND/OR VOMITING Propranolol HCl (Inderal La -) 60 mg PO DAILY [facility] Last Admin: 05/17/19 10:50 Dose: 60 mg Quetiapine Fumarate (Seroquel -) 12.5 mg PO DAILY [facility] Last Admin: 05/17/19 10:49 Dose: 12.5 mg Ranitidine HCl (Zantac -) 150 mg PO DAILY [facility] Last Admin: 05/17/19 10:49 Dose: 150 mg Senna (Senna -) 2 tab PO HS PRN PRN Reason: CONSTIPATION Sitagliptin Phosphate (Januvia -) 50 mg PO DAILY@0700 [facility] Last Admin: 05/17/19 10:53 Dose: 50 mg - Objective Vital Signs: Vital Signs Temperature 97.9 F 05/17/19 17:25 Pulse Rate 60 05/17/19 17:25 Respiratory Rate 18 05/17/19 17:25 Blood Pressure 127/75 05/17/19 17:25 O2 Sat by Pulse Oximetry (%) 97 05/17/19 09:00 Constitutional: Yes: No Distress Cardiovascular: Yes: Regular Rate and Rhythm, S1, S2 Respiratory: Yes: CTA Bilaterally Gastrointestinal: Yes: Normal Bowel Sounds, Soft Labs: CBC, BMP 05/16/19 07:30 05/16/19 07:15 INR, PTT INR 1.18 (0.83-1.09) H 05/15/19 19:23 Assessment/Plan FEVER/ LEUKOCYTOSIS R/O RECURRENT GRAM NEGATIVE SEPSIS AWAIT C/S CONTINUE EMPIRIC CEFTAZIDIME DISCUSSED BY PHONE WITH SON
[2019-05-18] MEDS ORDERED: PT OWN MED DRAWER 7, Y5N ONE ×4 (02:33→17:13)
[2019-05-18] MEDS: CEFTAZIDIME PENTAHYDRATE 1 GM in DEXTROSE 5%-WATER 100 ML IVPB SCH ×3 (02:38→17:13)
[2019-05-18] MEDS: sitaGLIPtin PHOSPHATE 50 MG TABLET PO SCH (06:07)
[2019-05-18] MEDS: GLIMEPIRIDE 4 MG TABLET (FP) PO SCH (06:07)
[2019-05-18] MEDS: HEPARIN NA (PORCINE) 5,000 UNITS/ML 1ML VIAL SQ SCH ×3 (06:07→22:12)
[2019-05-18] MEDS: INSULIN SLIDING SCALE (NOVOLOG) 1 VIAL SQ SCH ×4 (06:08→22:14)
[2019-05-18 07:16] LABS: ALBUMIN 2.8 g/dl (3.4-5.0); BILIRUBIN,TOTAL 0.7 mg/dL (0.2-1); BLOOD UREA NITROGEN 18.6 mg/dL (7-18); CALCIUM 8.3 mg/dL (8.5-10.1); CREATININE 1.3 mg/dL (0.55-1.3); POTASSIUM 4.5 mmol/L (3.5-5.1)
[2019-05-18 07:21] LABS: BASO % 0.8 % (0-2.0); HEMATOCRIT 31.8 % (32.4-45.2); LYMPH % 41.3 % (8-40); MCH 32.7 pg (25.7-33.7); MCHC 34.7 g/dl (32.0-36.0); MEAN CELL VOLUME 94.3 fl (80-96); MEAN PLT VOLUME 8.8 fl (7.5-11.1); MONO % 18.8 % (3.8-10.2); NEUT % 35.1 % (42.8-82.8); PLATELET COUNT 203 K/MM3 (134-434); RBC 3.37 M/mm3 (3.60-5.2); RDW 12.1 % (11.6-15.6); WHITE BLOOD COUNT 5.5 K/mm3 (4.0-10.0)
--- NOTE | 2019-05-18 09:19 | PN ---
Progress Note, Physician Chief Complaint: UTI Sepsis History of Present Illness: Previous notes and events reviewed awake and alert NAD BC neg x 2, 3rd BC pending afebrile no leukocytosis - Current Medication List Current Medications: Active Medications Acetaminophen (Tylenol -) 650 mg PO Q6H PRN PRN Reason: FEVER Last Admin: 05/16/19 20:58 Dose: 650 mg Albuterol/Ipratropium (Duoneb -) 1 amp NEB Q8H PRN PRN Reason: ASTHMA Amlodipine Besylate (Norvasc -) 10 mg PO DAILY [facility] Last Admin: 05/17/19 10:49 Dose: 10 mg Ascorbic Acid (Vitamin C -) 500 mg PO DAILY [facility] Last Admin: 05/17/19 10:49 Dose: 500 mg Atorvastatin Calcium (Lipitor -) 10 mg PO HS [facility] Last Admin: 05/17/19 21:37 Dose: 10 mg Cholecalciferol (Vitamin D3 -) 1,000 unit PO DAILY [facility] Last Admin: 05/17/19 10:49 Dose: 1,000 unit Docusate Sodium (Colace -) 100 mg PO Q8H PRN PRN Reason: CONSTIPATION Enalapril Maleate (Vasotec -) 5 mg PO DAILY [facility] Last Admin: 05/17/19 10:50 Dose: 5 mg Glimepiride (Amaryl -) 4 mg PO DAILY@0700 [facility] Last Admin: 05/18/19 06:07 Dose: 4 mg Heparin Sodium (Porcine) (Heparin -) 5,000 unit SQ TID [facility] Last Admin: 05/18/19 06:07 Dose: 5,000 unit Ceftazidime 1 gm/ Dextrose 100 mls @ 200 mls/hr IVPB Q8H-IV [facility]; Protocol Last Admin: 05/18/19 02:38 Dose: 200 mls/hr Insulin Aspart (Novolog Vial Sliding Scale -) 1 vial SQ ACHS [facility]; Protocol Last Admin: 05/18/19 06:08 Dose: Not Given Metoclopramide HCl (Reglan Injection -) 10 mg IVPUSH Q8H PRN PRN Reason: NAUSEA AND/OR VOMITING Propranolol HCl (Inderal La -) 60 mg PO DAILY [facility] Last Admin: 05/17/19 10:50 Dose: 60 mg Quetiapine Fumarate (Seroquel -) 12.5 mg PO DAILY [facility] Last Admin: 05/17/19 10:49 Dose: 12.5 mg Ranitidine HCl (Zantac -) 150 mg PO DAILY [facility] Last Admin: 05/17/19 10:49 Dose: 150 mg Senna (Senna -) 2 tab PO HS PRN PRN Reason: CONSTIPATION Sitagliptin Phosphate (Januvia -) 50 mg PO DAILY@0700 [facility] Last Admin: 05/18/19 06:07 Dose: 50 mg - Objective Vital Signs: Vital Signs Temperature 98 F 05/18/19 05:00 Pulse Rate 54 L 05/18/19 05:00 Respiratory Rate 18 05/18/19 08:53 Blood Pressure 127/93 05/18/19 05:00 O2 Sat by Pulse Oximetry (%) 97 05/18/19 08:53 Constitutional: Yes: No Distress, Calm Eyes: Yes: Conjunctiva Clear HENT: Yes: Atraumatic Cardiovascular: Yes: Regular Rate and Rhythm Respiratory: Yes: Regular, CTA Bilaterally Gastrointestinal: Yes: Normal Bowel Sounds, Soft Musculoskeletal: Yes: WNL Extremities: Yes: WNL Edema: No Neurological: Yes: Alert, Oriented Psychiatric: Yes: Alert, Oriented Labs: CBC, BMP 05/18/19 05:41 05/18/19 05:41 INR, PTT INR 1.18 (0.83-1.09) H 05/15/19 19:23 Microbiology 05/16/19 07:25 Blood - Peripheral Venous Blood Culture - Preliminary NO GROWTH OBTAINED AFTER 48 HOURS, INCUBATION TO CONTINUE FOR 3 DAYS. 05/16/19 07:15 Blood - Peripheral Venous Blood Culture - Preliminary NO GROWTH OBTAINED AFTER 48 HOURS, INCUBATION TO CONTINUE FOR 3 DAYS. 05/15/19 19:23 Blood - Peripheral Venous Blood Culture - Preliminary NO GROWTH OBTAINED AFTER 48 HOURS, INCUBATION TO CONTINUE FOR 3 DAYS. 05/15/19 19:23 Blood - Peripheral Venous Blood Culture - Preliminary NO GROWTH OBTAINED AFTER 48 HOURS, INCUBATION TO CONTINUE FOR 3 DAYS. 05/15/19 19:23 Urine - Urine - Catheterized Urine Culture - Final NO GROWTH OBTAINED Problem List - Problems (1) PATRIC (acute kidney injury) Assessment/Plan: -Nephrology on board -BUN 18.6 -monitor renal function Code(s): N17.9 - ACUTE KIDNEY FAILURE, UNSPECIFIED (2) Sepsis Assessment/Plan: -ID on board -afebrile -no leukocytosis -LA 1.2 -Ceftazidime -tylenol for temp >100F -BC neg x 2, 3rd BC pending -UC neg Code(s): A41.9 - SEPSIS, UNSPECIFIED ORGANISM Qualifiers: Sepsis type: sepsis due to unspecified organism Qualified Code(s): A41.9 - Sepsis, unspecified organism (3) HLD (hyperlipidemia) Assessment/Plan: -Atorvastatin Code(s): E78.5 - HYPERLIPIDEMIA, UNSPECIFIED (4) HTN (hypertension) Assessment/Plan: -Amlodipine, Enalapril, Propanolol -Low Na/diabetic diet Code(s): I10 - ESSENTIAL (PRIMARY) HYPERTENSION (5) T2DM (type 2 diabetes mellitus) Assessment/Plan: -Januvia, Glimepiride -BGM ACHS -ISS -diabetic diet Code(s): E11.9 - TYPE 2 DIABETES MELLITUS WITHOUT COMPLICATIONS (6) UTI (urinary tract infection) Assessment/Plan: -ID on board -Ceftazidime -UC neg -no leukocytosis -afebrile Code(s): N39.0 - URINARY TRACT INFECTION, SITE NOT SPECIFIED Qualifiers: Urinary tract infection type: site unspecified Hematuria presence: without hematuria Qualified Code(s): N39.0 - Urinary tract infection, site not specified Assessment/Plan see problem list dvt ppx
--- NOTE | 2019-05-18 09:27 | PN ---
Progress Note (short form) - Note Progress Note: Resting in NAD. No acute events overnight. No CP or SOB. Afebrile. Intake & Output 05/15/19 05/16/19 05/17/19 05/18/19 23:59 23:59 23:59 23:59 Intake Total 0 722 1062 Balance 0 722 1062 Weight 129 lb 8 oz 128 lb 3 oz 123 lb 9 oz 124 lb 11.2 oz Last Vital Signs Temp Pulse Resp BP Pulse Ox 98 F 54 L 18 127/93 97 05/18/19 05:00 05/18/19 05:00 05/18/19 08:53 05/18/19 05:00 05/18/19 08:53 Active Medications Acetaminophen (Tylenol -) 650 mg PO Q6H PRN PRN Reason: FEVER Last Admin: 05/16/19 20:58 Dose: 650 mg Albuterol/Ipratropium (Duoneb -) 1 amp NEB Q8H PRN PRN Reason: ASTHMA Amlodipine Besylate (Norvasc -) 10 mg PO DAILY [facility] Last Admin: 05/17/19 10:49 Dose: 10 mg Ascorbic Acid (Vitamin C -) 500 mg PO DAILY [facility] Last Admin: 05/17/19 10:49 Dose: 500 mg Atorvastatin Calcium (Lipitor -) 10 mg PO HS [facility] Last Admin: 05/17/19 21:37 Dose: 10 mg Cholecalciferol (Vitamin D3 -) 1,000 unit PO DAILY [facility] Last Admin: 05/17/19 10:49 Dose: 1,000 unit Docusate Sodium (Colace -) 100 mg PO Q8H PRN PRN Reason: CONSTIPATION Enalapril Maleate (Vasotec -) 5 mg PO DAILY [facility] Last Admin: 05/17/19 10:50 Dose: 5 mg Glimepiride (Amaryl -) 4 mg PO DAILY@0700 [facility] Last Admin: 05/18/19 06:07 Dose: 4 mg Heparin Sodium (Porcine) (Heparin -) 5,000 unit SQ TID [facility] Last Admin: 05/18/19 06:07 Dose: 5,000 unit Ceftazidime 1 gm/ Dextrose 100 mls @ 200 mls/hr IVPB Q8H-IV [facility]; Protocol Last Admin: 05/18/19 02:38 Dose: 200 mls/hr Insulin Aspart (Novolog Vial Sliding Scale -) 1 vial SQ ACHS [facility]; Protocol Last Admin: 05/18/19 06:08 Dose: Not Given Metoclopramide HCl (Reglan Injection -) 10 mg IVPUSH Q8H PRN PRN Reason: NAUSEA AND/OR VOMITING Propranolol HCl (Inderal La -) 60 mg PO DAILY [facility] Last Admin: 05/17/19 10:50 Dose: 60 mg Quetiapine Fumarate (Seroquel -) 12.5 mg PO DAILY [facility] Last Admin: 05/17/19 10:49 Dose: 12.5 mg Ranitidine HCl (Zantac -) 150 mg PO DAILY [facility] Last Admin: 05/17/19 10:49 Dose: 150 mg Senna (Senna -) 2 tab PO HS PRN PRN Reason: CONSTIPATION Sitagliptin Phosphate (Januvia -) 50 mg PO DAILY@0700 [facility] Last Admin: 05/18/19 06:07 Dose: 50 mg Eyes: Yes: (-) Icterus HENT: Yes: Normocephalic Neck: Yes: Trachea Midline Respiratory: Yes: CTA Bilaterally Gastrointestinal: Yes: Normal Bowel Sounds Renal/: Yes: WNL Musculoskeletal: Yes: WNL Extremities: Yes: WNL Edema: No Integumentary: Yes: WNL Neurological: Yes: Alert Psychiatric: Yes: Alert, Oriented Labs: Laboratory Results - last 24 hr 05/17/19 05/17/19 05/17/19 10:47 16:39 21:35 WBC RBC Hgb Hct MCV MCH MCHC RDW Plt Count MPV Absolute Neuts (auto) Neutrophils % Lymphocytes % Monocytes % Eosinophils % Basophils % Nucleated RBC % Sodium Potassium Chloride Carbon Dioxide Anion Gap BUN Creatinine Est GFR (CKD-EPI)AfAm Est GFR (CKD-EPI)NonAf POC Glucometer 231 165 156 Random Glucose Calcium Total Bilirubin AST ALT Alkaline Phosphatase Total Protein Albumin 05/18/19 05/18/19 05/18/19 05:37 05:41 05:41 WBC 5.5 RBC 3.37 L Hgb 11.0 Hct 31.8 L MCV 94.3 MCH 32.7 MCHC 34.7 RDW 12.1 Plt Count 203 MPV 8.8 Absolute Neuts (auto) 1.9 Neutrophils % 35.1 L D Lymphocytes % 41.3 H D Monocytes % 18.8 H D Eosinophils % 4.0 D Basophils % 0.8 Nucleated RBC % 0 Sodium 136 Potassium 4.5 Chloride 102 Carbon Dioxide 24 Anion Gap 10 BUN 18.6 H Creatinine 1.3 Est GFR (CKD-EPI)AfAm 42.72 Est GFR (CKD-EPI)NonAf 36.86 POC Glucometer 149 Random Glucose 149 H Calcium 8.3 L Total Bilirubin 0.7 AST 16 ALT 19 Alkaline Phosphatase 104 Total Protein 6.0 L Albumin 2.8 L Problem List - Problems (1) Sepsis Code(s): A41.9 - SEPSIS, UNSPECIFIED ORGANISM Qualifiers: Sepsis type: sepsis due to unspecified organism Qualified Code(s): A41.9 - Sepsis, unspecified organism (2) HLD (hyperlipidemia) Code(s): E78.5 - HYPERLIPIDEMIA, UNSPECIFIED (3) HTN (hypertension) Code(s): I10 - ESSENTIAL (PRIMARY) HYPERTENSION (4) UTI (urinary tract infection) Code(s): N39.0 - URINARY TRACT INFECTION, SITE NOT SPECIFIED Qualifiers: Urinary tract infection type: site unspecified Hematuria presence: without hematuria Qualified Code(s): N39.0 - Urinary tract infection, site not specified IMP: Recurrent Gm (-) Sepsis PLAN: ABX per ID Follow final cultures VTE prophylaxis Glycemic control Dr Cruz
[2019-05-18] MEDS: QUEtiapine FUMARATE 25 MG TABLET (FP) PO SCH (10:12)
[2019-05-18] MEDS: ASCORBIC ACID 500 MG TABLET (FP) PO SCH (10:13)
[2019-05-18] MEDS: RANITIDINE HCL 150 MG TABLET (FP) PO SCH (10:14)
[2019-05-18] MEDS: amLODIPine BESYLATE 10 MG TABLET (FP) PO SCH (10:14)
[2019-05-18] MEDS: CHOLECALCIFEROL (VIT D3) 1,000 UNIT (25 MCG) TABLET PO SCH (10:14)
[2019-05-18] MEDS: ENALAPRIL MALEATE 5 MG TABLET (FP) PO SCH (10:16)
--- NOTE | 2019-05-18 13:41 | PN ---
Progress Note, Physician History of Present Illness: Pt seen and examined at bedside. She is awake and alert. She denies fevers or chills. - Current Medication List Current Medications: Active Medications Acetaminophen (Tylenol -) 650 mg PO Q6H PRN PRN Reason: FEVER Last Admin: 05/16/19 20:58 Dose: 650 mg Albuterol/Ipratropium (Duoneb -) 1 amp NEB Q8H PRN PRN Reason: ASTHMA Amlodipine Besylate (Norvasc -) 10 mg PO DAILY [facility] Last Admin: 05/18/19 10:14 Dose: 10 mg Ascorbic Acid (Vitamin C -) 500 mg PO DAILY [facility] Last Admin: 05/18/19 10:13 Dose: 500 mg Atorvastatin Calcium (Lipitor -) 10 mg PO HS [facility] Last Admin: 05/17/19 21:37 Dose: 10 mg Cholecalciferol (Vitamin D3 -) 1,000 unit PO DAILY [facility] Last Admin: 05/18/19 10:14 Dose: 1,000 unit Docusate Sodium (Colace -) 100 mg PO Q8H PRN PRN Reason: CONSTIPATION Enalapril Maleate (Vasotec -) 5 mg PO DAILY [facility] Last Admin: 05/18/19 10:16 Dose: 5 mg Glimepiride (Amaryl -) 4 mg PO DAILY@0700 [facility] Last Admin: 05/18/19 06:07 Dose: 4 mg Heparin Sodium (Porcine) (Heparin -) 5,000 unit SQ TID [facility] Last Admin: 05/18/19 06:07 Dose: 5,000 unit Ceftazidime 1 gm/ Dextrose 100 mls @ 200 mls/hr IVPB Q8H-IV [facility]; Protocol Last Admin: 05/18/19 10:11 Dose: 200 mls/hr Insulin Aspart (Novolog Vial Sliding Scale -) 1 vial SQ ACHS [facility]; Protocol Last Admin: 05/18/19 11:33 Dose: 3 units Metoclopramide HCl (Reglan Injection -) 10 mg IVPUSH Q8H PRN PRN Reason: NAUSEA AND/OR VOMITING Propranolol HCl (Inderal La -) 60 mg PO DAILY [facility] Last Admin: 05/18/19 10:16 Dose: 60 mg Quetiapine Fumarate (Seroquel -) 12.5 mg PO DAILY [facility] Last Admin: 05/18/19 10:12 Dose: 12.5 mg Ranitidine HCl (Zantac -) 150 mg PO DAILY [facility] Last Admin: 05/18/19 10:14 Dose: 150 mg Senna (Senna -) 2 tab PO HS PRN PRN Reason: CONSTIPATION Sitagliptin Phosphate (Januvia -) 50 mg PO DAILY@0700 [facility] Last Admin: 05/18/19 06:07 Dose: 50 mg - Objective Vital Signs: Vital Signs Temperature 98.8 F 05/18/19 09:00 Pulse Rate 60 05/18/19 09:00 Respiratory Rate 20 05/18/19 09:00 Blood Pressure 111/59 L 05/18/19 09:00 O2 Sat by Pulse Oximetry (%) 97 05/18/19 08:53 Constitutional: Yes: Calm Eyes: Yes: Conjunctiva Clear HENT: Yes: Atraumatic Neck: Yes: Supple Cardiovascular: Yes: S1, S2 Respiratory: Yes: CTA Bilaterally Gastrointestinal: Yes: Soft Genitourinary: Yes: WNL Musculoskeletal: Yes: WNL Edema: No Neurological: Yes: Oriented Psychiatric: Yes: Oriented Labs: CBC, BMP 05/18/19 05:41 05/18/19 05:41 INR, PTT INR 1.18 (0.83-1.09) H 05/15/19 19:23 Assessment/Plan Current Medications Generic Name Dose Route Start Last Admin Trade Name Freq PRN Reason Stop Dose Admin Acetaminophen 650 mg 05/15/19 21:25 05/16/19 20:58 Tylenol - PO 650 mg Q6H PRN Administration FEVER Albuterol/Ipratropium 1 amp 05/17/19 10:57 Duoneb - NEB Q8H PRN ASTHMA Amlodipine Besylate 10 mg 05/16/19 10:00 05/18/19 10:14 Norvasc - PO 10 mg DAILY [facility] Administration Ascorbic Acid 500 mg 05/16/19 10:00 05/18/19 10:13 Vitamin C - PO 500 mg DAILY [facility] Administration Atorvastatin Calcium 10 mg 05/16/19 22:09 05/17/19 21:37 Lipitor - PO 10 mg HS [facility] Administration Cholecalciferol 1,000 unit 05/16/19 10:00 05/18/19 10:14 Vitamin D3 - PO 1,000 unit DAILY [facility] Administration Docusate Sodium 100 mg 05/15/19 21:32 Colace - PO Q8H PRN CONSTIPATION Enalapril Maleate 5 mg 05/16/19 13:00 05/18/19 10:16 Vasotec - PO 5 mg DAILY [facility] Administration Glimepiride 4 mg 05/17/19 07:00 05/18/19 06:07 Amaryl - PO 4 mg DAILY@0700 [facility] Administration Heparin Sodium (Porcine) 5,000 unit 05/15/19 22:00 05/18/19 06:07 Heparin - SQ 5,000 unit TID [facility] Administration Ceftazidime 1 gm/ Dextrose 100 mls @ 200 mls/hr 05/16/19 18:00 05/18/19 10:11 IVPB 200 mls/hr Q8H-IV [facility] Administration Protocol Insulin Aspart 1 vial 05/15/19 22:00 05/18/19 11:33 Novolog Vial Sliding Scale - SQ 3 units ACHS [facility] Administration Protocol Metoclopramide HCl 10 mg 05/15/19 22:37 Reglan Injection - IVPUSH Q8H PRN NAUSEA AND/OR VOMITING Propranolol HCl 60 mg 05/16/19 17:00 05/18/19 10:16 Inderal La - PO 60 mg DAILY [facility] Administration Quetiapine Fumarate 12.5 mg 05/16/19 10:00 05/18/19 10:12 Seroquel - PO 12.5 mg DAILY [facility] Administration Ranitidine HCl 150 mg 05/16/19 10:00 05/18/19 10:14 Zantac - PO 150 mg DAILY [facility] Administration Senna 2 tab 05/15/19 21:32 Senna - PO HS PRN CONSTIPATION Sitagliptin Phosphate 50 mg 05/17/19 09:15 05/18/19 06:07 Januvia - PO 50 mg DAILY@0700 [facility] Administration Impression 1. CKD 2. UTI 3. hyperkalemia 4. DM 5. HTN Plan - potassium stable - cont raoul - renal function is improving - will need outpt follow up after discharge
--- NOTE | 2019-05-18 14:12 | PN ---
Progress Note, Physician History of Present Illness: AWAKE, ALERT IN BED OFFERS NO COMPLAINTS TEMPS DOWN AFEBRILE DENIES DYSURIA WBC WNL CULTURES NO GROWTH - Current Medication List Current Medications: Active Medications Acetaminophen (Tylenol -) 650 mg PO Q6H PRN PRN Reason: FEVER Last Admin: 05/16/19 20:58 Dose: 650 mg Albuterol/Ipratropium (Duoneb -) 1 amp NEB Q8H PRN PRN Reason: ASTHMA Amlodipine Besylate (Norvasc -) 10 mg PO DAILY [facility] Last Admin: 05/18/19 10:14 Dose: 10 mg Ascorbic Acid (Vitamin C -) 500 mg PO DAILY [facility] Last Admin: 05/18/19 10:13 Dose: 500 mg Atorvastatin Calcium (Lipitor -) 10 mg PO HS [facility] Last Admin: 05/17/19 21:37 Dose: 10 mg Cholecalciferol (Vitamin D3 -) 1,000 unit PO DAILY [facility] Last Admin: 05/18/19 10:14 Dose: 1,000 unit Docusate Sodium (Colace -) 100 mg PO Q8H PRN PRN Reason: CONSTIPATION Enalapril Maleate (Vasotec -) 5 mg PO DAILY [facility] Last Admin: 05/18/19 10:16 Dose: 5 mg Glimepiride (Amaryl -) 4 mg PO DAILY@0700 [facility] Last Admin: 05/18/19 06:07 Dose: 4 mg Heparin Sodium (Porcine) (Heparin -) 5,000 unit SQ TID [facility] Last Admin: 05/18/19 06:07 Dose: 5,000 unit Ceftazidime 1 gm/ Dextrose 100 mls @ 200 mls/hr IVPB Q8H-IV [facility]; Protocol Last Admin: 05/18/19 10:11 Dose: 200 mls/hr Insulin Aspart (Novolog Vial Sliding Scale -) 1 vial SQ ACHS [facility]; Protocol Last Admin: 05/18/19 11:33 Dose: 3 units Metoclopramide HCl (Reglan Injection -) 10 mg IVPUSH Q8H PRN PRN Reason: NAUSEA AND/OR VOMITING Propranolol HCl (Inderal La -) 60 mg PO DAILY [facility] Last Admin: 05/18/19 10:16 Dose: 60 mg Quetiapine Fumarate (Seroquel -) 12.5 mg PO DAILY [facility] Last Admin: 05/18/19 10:12 Dose: 12.5 mg Ranitidine HCl (Zantac -) 150 mg PO DAILY [facility] Last Admin: 05/18/19 10:14 Dose: 150 mg Senna (Senna -) 2 tab PO HS PRN PRN Reason: CONSTIPATION Sitagliptin Phosphate (Januvia -) 50 mg PO DAILY@0700 [facility] Last Admin: 05/18/19 06:07 Dose: 50 mg - Objective Vital Signs: Vital Signs Temperature 98.8 F 05/18/19 09:00 Pulse Rate 60 05/18/19 09:00 Respiratory Rate 20 05/18/19 09:00 Blood Pressure 111/59 L 05/18/19 09:00 O2 Sat by Pulse Oximetry (%) 97 05/18/19 08:53 Constitutional: Yes: No Distress Eyes: Yes: Conjunctiva Clear Cardiovascular: Yes: Regular Rate and Rhythm, S1, S2 Respiratory: Yes: CTA Bilaterally Gastrointestinal: Yes: Normal Bowel Sounds, Soft, Abdomen, Obese. No: Tenderness Edema: No Labs: CBC, BMP 05/18/19 05:41 05/18/19 05:41 INR, PTT INR 1.18 (0.83-1.09) H 05/15/19 19:23 Assessment/Plan FEVER/ LEUKOCYTOSIS IMPROVED AWAIT C/S CONTINUE EMPIRIC CEFTAZIDIME IF STABLE PO ANTIBIOTICS NEXT 24HR
[2019-05-18] MEDS ORDERED: INSULIN (LEVEMIR) 100 UNITS/ML UNITS SQ ONE (17:49)
[2019-05-18] MEDS ORDERED: INSULIN (NOVOLOG) ASPART 100 UNITS/ML 10ML VIAL ONE (17:49)
[2019-05-18] MEDS: ATORVASTATIN CA 10 MG TABLET (FP) PO SCH (22:12)
--- NOTE | 2019-05-18 23:06 | PN ---
Progress Note, Physician Chief Complaint: eating better sugars improved - Current Medication List Current Medications: Active Medications Acetaminophen (Tylenol -) 650 mg PO Q6H PRN PRN Reason: FEVER Last Admin: 05/16/19 20:58 Dose: 650 mg Albuterol/Ipratropium (Duoneb -) 1 amp NEB Q8H PRN PRN Reason: ASTHMA Last Admin: 05/18/19 19:40 Dose: 1 amp Amlodipine Besylate (Norvasc -) 10 mg PO DAILY [facility] Last Admin: 05/18/19 10:14 Dose: 10 mg Ascorbic Acid (Vitamin C -) 500 mg PO DAILY [facility] Last Admin: 05/18/19 10:13 Dose: 500 mg Atorvastatin Calcium (Lipitor -) 10 mg PO HS [facility] Last Admin: 05/18/19 22:12 Dose: 10 mg Cholecalciferol (Vitamin D3 -) 1,000 unit PO DAILY [facility] Last Admin: 05/18/19 10:14 Dose: 1,000 unit Docusate Sodium (Colace -) 100 mg PO Q8H PRN PRN Reason: CONSTIPATION Enalapril Maleate (Vasotec -) 5 mg PO DAILY [facility] Last Admin: 05/18/19 10:16 Dose: 5 mg Glimepiride (Amaryl -) 4 mg PO DAILY@0700 [facility] Last Admin: 05/18/19 06:07 Dose: 4 mg Heparin Sodium (Porcine) (Heparin -) 5,000 unit SQ TID [facility] Last Admin: 05/18/19 22:12 Dose: 5,000 unit Ceftazidime 1 gm/ Dextrose 100 mls @ 200 mls/hr IVPB Q8H-IV [facility]; Protocol Last Admin: 05/18/19 17:13 Dose: 200 mls/hr Insulin Aspart (Novolog Vial Sliding Scale -) 1 vial SQ ACHS [facility]; Protocol Last Admin: 05/18/19 22:14 Dose: 2 units Metoclopramide HCl (Reglan Injection -) 10 mg IVPUSH Q8H PRN PRN Reason: NAUSEA AND/OR VOMITING Propranolol HCl (Inderal La -) 60 mg PO DAILY [facility] Last Admin: 05/18/19 10:16 Dose: 60 mg Quetiapine Fumarate (Seroquel -) 12.5 mg PO DAILY [facility] Last Admin: 05/18/19 10:12 Dose: 12.5 mg Ranitidine HCl (Zantac -) 150 mg PO DAILY [facility] Last Admin: 05/18/19 10:14 Dose: 150 mg Senna (Senna -) 2 tab PO HS PRN PRN Reason: CONSTIPATION Sitagliptin Phosphate (Januvia -) 50 mg PO DAILY@0700 [facility] Last Admin: 05/18/19 06:07 Dose: 50 mg - Objective Vital Signs: Vital Signs Temperature 98.6 F 05/18/19 17:00 Pulse Rate 56 L 05/18/19 17:00 Respiratory Rate 20 05/18/19 17:00 Blood Pressure 126/71 05/18/19 17:00 O2 Sat by Pulse Oximetry (%) 97 05/18/19 08:53 Constitutional: Yes: Calm Eyes: Yes: EOM Intact HENT: Yes: Normocephalic Neck: Yes: Trachea Midline Cardiovascular: Yes: Regular Rate and Rhythm Respiratory: Yes: Regular Gastrointestinal: Yes: Normal Bowel Sounds ...Rectal Exam: Yes: Deferred Genitourinary: Yes: WNL Musculoskeletal: Yes: WNL Extremities: Yes: WNL Edema: No Neurological: Yes: Alert, Oriented Labs: CBC, BMP 05/18/19 05:41 05/18/19 05:41 INR, PTT INR 1.18 (0.83-1.09) H 05/15/19 19:23 Problem List - Problems (1) Sepsis Code(s): A41.9 - SEPSIS, UNSPECIFIED ORGANISM Qualifiers: Sepsis type: sepsis due to unspecified organism Qualified Code(s): A41.9 - Sepsis, unspecified organism (2) DVT prophylaxis Code(s): FNL0705 - (3) Dehydration Code(s): E86.0 - DEHYDRATION (4) HLD (hyperlipidemia) Code(s): E78.5 - HYPERLIPIDEMIA, UNSPECIFIED Assessment/Plan Current Active Problems dm2, neuropathy hyperglycemia PATRIC (acute kidney injury) (Acute) Hyperkalemia (Acute) Prophylactic measure (Acute) Sepsis (Acute) Abnormal Lab Results 05/18/19 05/18/19 05:41 05:41 RBC 3.37 L Hct 31.8 L Neutrophils % 35.1 L D Lymphocytes % 41.3 H D Monocytes % 18.8 H D BUN 18.6 H Random Glucose 149 H Calcium 8.3 L Total Protein 6.0 L Albumin 2.8 L Laboratory Results - last 24 hr 05/18/19 05/18/19 05/18/19 05:37 05:41 05:41 WBC 5.5 RBC 3.37 L Hgb 11.0 Hct 31.8 L MCV 94.3 MCH 32.7 MCHC 34.7 RDW 12.1 Plt Count 203 MPV 8.8 Absolute Neuts (auto) 1.9 Neutrophils % 35.1 L D Lymphocytes % 41.3 H D Monocytes % 18.8 H D Eosinophils % 4.0 D Basophils % 0.8 Nucleated RBC % 0 Sodium 136 Potassium 4.5 Chloride 102 Carbon Dioxide 24 Anion Gap 10 BUN 18.6 H Creatinine 1.3 Est GFR (CKD-EPI)AfAm 42.72 Est GFR (CKD-EPI)NonAf 36.86 POC Glucometer 149 Random Glucose 149 H Calcium 8.3 L Total Bilirubin 0.7 AST 16 ALT 19 Alkaline Phosphatase 104 Total Protein 6.0 L Albumin 2.8 L 05/18/19 05/18/19 05/18/19 11:31 17:10 22:10 WBC RBC Hgb Hct MCV MCH MCHC RDW Plt Count MPV Absolute Neuts (auto) Neutrophils % Lymphocytes % Monocytes % Eosinophils % Basophils % Nucleated RBC % Sodium Potassium Chloride Carbon Dioxide Anion Gap BUN Creatinine Est GFR (CKD-EPI)AfAm Est GFR (CKD-EPI)NonAf POC Glucometer 215 131 192 Random Glucose Calcium Total Bilirubin AST ALT Alkaline Phosphatase Total Protein Albumin Laboratory Tests 04/30/19 05/17/19 05/18/19 05:10 21:35 05:37 Sodium Potassium Chloride Carbon Dioxide Anion Gap BUN Creatinine POC Glucometer 156 149 Hemoglobin A1c % 7.9 H 05/18/19 05/18/19 05/18/19 05:41 11:31 17:10 Sodium 136 Potassium 4.5 Chloride 102 Carbon Dioxide 24 Anion Gap 10 BUN 18.6 H Creatinine 1.3 POC Glucometer 215 131 Hemoglobin A1c % 05/18/19 22:10 Sodium Potassium Chloride Carbon Dioxide Anion Gap BUN Creatinine POC Glucometer 192 Hemoglobin A1c % plan: bgm continue with coverage continue glimeperide / januvia
[2019-05-19] MEDS ORDERED: PT OWN MED DRAWER 7, Y5N ONE ×5 (01:02→18:01)
[2019-05-19] MEDS: CEFTAZIDIME PENTAHYDRATE 1 GM in DEXTROSE 5%-WATER 100 ML IVPB SCH ×2 (01:14→09:36)
[2019-05-19] MEDS: INSULIN SLIDING SCALE (NOVOLOG) 1 VIAL SQ SCH ×2 (06:14→12:20)
[2019-05-19] MEDS: HEPARIN NA (PORCINE) 5,000 UNITS/ML 1ML VIAL SQ SCH ×2 (06:14→14:26)
[2019-05-19] MEDS: sitaGLIPtin PHOSPHATE 50 MG TABLET PO SCH (06:15)
[2019-05-19] MEDS: GLIMEPIRIDE 4 MG TABLET (FP) PO SCH (06:15)
[2019-05-19 06:38] LABS: HEMATOCRIT 31.3 % (32.4-45.2); HEMOGLOBIN 10.9 GM/dL (10.7-15.3); MCH 32.6 pg (25.7-33.7); MCHC 34.8 g/dl (32.0-36.0); MEAN CELL VOLUME 93.7 fl (80-96); MEAN PLT VOLUME 8.5 fl (7.5-11.1); PLATELET COUNT 229 K/MM3 (134-434); RBC 3.34 M/mm3 (3.60-5.2); RDW 12.1 % (11.6-15.6); WHITE BLOOD COUNT 5.8 K/mm3 (4.0-10.0)
[2019-05-19 06:59] LABS: ALBUMIN 2.9 g/dl (3.4-5.0); BILIRUBIN,TOTAL 0.7 mg/dL (0.2-1); BLOOD UREA NITROGEN 21.4 mg/dL (7-18); CALCIUM 8.6 mg/dL (8.5-10.1); CREATININE 1.3 mg/dL (0.55-1.3); POTASSIUM 4.7 mmol/L (3.5-5.1); TOT PROT 6.4 g/dl (6.4-8.2)
--- NOTE | 2019-05-19 08:42 | DS ---
Physical Examination Vital Signs: Vital Signs Temperature 98.3 F 05/19/19 06:00 Pulse Rate 63 05/19/19 06:00 Respiratory Rate 18 05/19/19 06:00 Blood Pressure 143/79 05/19/19 06:00 O2 Sat by Pulse Oximetry (%) 95 05/18/19 21:00 Labs: CBC, BMP 05/19/19 05:39 05/19/19 05:39 Discharge Summary Reason For Visit: ACUTE KIDNEY INJURY Current Active Problems PATRIC (acute kidney injury) (Acute) Hyperkalemia (Acute) Prophylactic measure (Acute) Sepsis (Acute) Hospital Course: - Problems (1) PATRIC (acute kidney injury) Assessment/Plan: -Nephrology on board -BUN 18.6 -monitor renal function Code(s): N17.9 - ACUTE KIDNEY FAILURE, UNSPECIFIED (2) Sepsis Assessment/Plan: -ID on board -afebrile -no leukocytosis -LA 1.2 -Ceftazidime--dc--?po -tylenol for temp >100F -BC neg x 2, 3rd BC pending--Neg -UC neg Code(s): A41.9 - SEPSIS, UNSPECIFIED ORGANISM Qualifiers: Sepsis type: sepsis due to unspecified organism Qualified Code(s): A41.9 - Sepsis, unspecified organism (3) HLD (hyperlipidemia) Assessment/Plan: -Atorvastatin Code(s): E78.5 - HYPERLIPIDEMIA, UNSPECIFIED (4) HTN (hypertension) Assessment/Plan: -Amlodipine, Enalapril, Propanolol -Low Na/diabetic diet Code(s): I10 - ESSENTIAL (PRIMARY) HYPERTENSION (5) T2DM (type 2 diabetes mellitus) Assessment/Plan: -Januvia, Glimepiride -BGM ACHS -ISS -diabetic diet Code(s): E11.9 - TYPE 2 DIABETES MELLITUS WITHOUT COMPLICATIONS (6) UTI (urinary tract infection) Assessment/Plan: -ID on board -Ceftazidime -UC neg -no leukocytosis -afebrile Code(s): N39.0 - URINARY TRACT INFECTION, SITE NOT SPECIFIED Qualifiers: Urinary tract infection type: site unspecified Hematuria presence: without hematuria Qualified Code(s): N39.0 - Urinary tract infection, site not specified Condition: Improved - Instructions Disposition: HOME - Home Medications Comprehensive Discharge Medication List: Ambulatory Orders Atorvastatin Ca [Lipitor] 10 mg PO HS 02/25/12 Enalapril Maleate [Vasotec -] 5 mg PO DAILY 02/25/12 Amlodipine Besylate [Norvasc -] 10 mg PO DAILY #30 tablet 08/01/16 Ascorbate Calcium [Vitamin C] 500 mg PO DAILY 04/29/19 Cholecalciferol (Vitamin D3) [Vitamin D3] 1,000 unit PO DAILY 04/29/19 Propranolol HCl [Propranolol HCl ER] 60 mg PO DAILY 04/29/19 Acetaminophen [Tylenol .Regular Strength -] 650 mg PO Q6H PRN tablet 05/06/19 Quetiapine Fumarate [Seroquel -] 12.5 mg PO DAILY #30 tablet 05/06/19 Ranitidine [Zantac -] 150 mg PO DAILY #30 tablet 05/06/19 Docusate Sodium [Colace -] 100 mg PO Q8H PRN capsule 05/19/19 Glimepiride [Amaryl -] 4 mg PO DAILY@0700 #30 tablet 05/19/19 Sitagliptin Phosphate [Januvia -] 50 mg PO DAILY@0700 tablet 05/19/19
[2019-05-19] MEDS: ENALAPRIL MALEATE 5 MG TABLET (FP) PO SCH (09:36)
[2019-05-19] MEDS: RANITIDINE HCL 150 MG TABLET (FP) PO SCH (09:36)
[2019-05-19] MEDS: CHOLECALCIFEROL (VIT D3) 1,000 UNIT (25 MCG) TABLET PO SCH (09:37)
[2019-05-19] MEDS: QUEtiapine FUMARATE 25 MG TABLET (FP) PO SCH (09:37)
[2019-05-19] MEDS: amLODIPine BESYLATE 10 MG TABLET (FP) PO SCH (09:37)
[2019-05-19] MEDS: ASCORBIC ACID 500 MG TABLET (FP) PO SCH (09:37)
--- NOTE | 2019-05-19 09:40 | PN ---
Progress Note (short form) - Note Progress Note: Resting in NAD. No acute events overnight. No CP or SOB. Afebrile. Intake & Output 05/16/19 05/17/19 05/18/19 05/19/19 23:59 23:59 23:59 23:59 Intake Total 722 1062 750 0 Balance 722 1062 750 0 Weight 128 lb 3 oz 123 lb 9 oz 124 lb 11.2 oz 122 lb 7 oz Last Vital Signs Temp Pulse Resp BP Pulse Ox 98.3 F 63 18 143/79 95 05/19/19 06:00 05/19/19 06:00 05/19/19 06:00 05/19/19 06:00 05/18/19 21:00 Active Medications Acetaminophen (Tylenol -) 650 mg PO Q6H PRN PRN Reason: FEVER Last Admin: 05/16/19 20:58 Dose: 650 mg Albuterol/Ipratropium (Duoneb -) 1 amp NEB Q8H PRN PRN Reason: ASTHMA Last Admin: 05/18/19 19:40 Dose: 1 amp Amlodipine Besylate (Norvasc -) 10 mg PO DAILY [facility] Last Admin: 05/19/19 09:37 Dose: 10 mg Ascorbic Acid (Vitamin C -) 500 mg PO DAILY [facility] Last Admin: 05/19/19 09:37 Dose: 500 mg Atorvastatin Calcium (Lipitor -) 10 mg PO HS [facility] Last Admin: 05/18/19 22:12 Dose: 10 mg Cholecalciferol (Vitamin D3 -) 1,000 unit PO DAILY [facility] Last Admin: 05/19/19 09:37 Dose: 1,000 unit Docusate Sodium (Colace -) 100 mg PO Q8H PRN PRN Reason: CONSTIPATION Enalapril Maleate (Vasotec -) 5 mg PO DAILY [facility] Last Admin: 05/19/19 09:36 Dose: 5 mg Glimepiride (Amaryl -) 4 mg PO DAILY@0700 [facility] Last Admin: 05/19/19 06:15 Dose: 4 mg Heparin Sodium (Porcine) (Heparin -) 5,000 unit SQ TID [facility] Last Admin: 05/19/19 06:14 Dose: 5,000 unit Ceftazidime 1 gm/ Dextrose 100 mls @ 200 mls/hr IVPB Q8H-IV [facility]; Protocol Last Admin: 05/19/19 09:36 Dose: 200 mls/hr Insulin Aspart (Novolog Vial Sliding Scale -) 1 vial SQ ACHS [facility]; Protocol Last Admin: 05/19/19 06:14 Dose: Not Given Metoclopramide HCl (Reglan Injection -) 10 mg IVPUSH Q8H PRN PRN Reason: NAUSEA AND/OR VOMITING Propranolol HCl (Inderal La -) 60 mg PO DAILY [facility] Last Admin: 05/19/19 09:36 Dose: 60 mg Quetiapine Fumarate (Seroquel -) 12.5 mg PO DAILY [facility] Last Admin: 05/19/19 09:37 Dose: 12.5 mg Ranitidine HCl (Zantac -) 150 mg PO DAILY [facility] Last Admin: 05/19/19 09:36 Dose: 150 mg Senna (Senna -) 2 tab PO HS PRN PRN Reason: CONSTIPATION Sitagliptin Phosphate (Januvia -) 50 mg PO DAILY@0700 [facility] Last Admin: 05/19/19 06:15 Dose: 50 mg Eyes: Yes: (-) Icterus HENT: Yes: Normocephalic Neck: Yes: Trachea Midline Respiratory: Yes: CTA Bilaterally Gastrointestinal: Yes: Normal Bowel Sounds Renal/: Yes: WNL Musculoskeletal: Yes: WNL Extremities: Yes: WNL Edema: No Integumentary: Yes: WNL Neurological: Yes: Alert Psychiatric: Yes: Alert, Oriented Labs: Laboratory Results - last 24 hr 05/18/19 05/18/19 05/18/19 11:31 17:10 22:10 WBC RBC Hgb Hct MCV MCH MCHC RDW Plt Count MPV Sodium Potassium Chloride Carbon Dioxide Anion Gap BUN Creatinine Est GFR (CKD-EPI)AfAm Est GFR (CKD-EPI)NonAf POC Glucometer 215 131 192 Random Glucose Calcium Total Bilirubin AST ALT Alkaline Phosphatase Total Protein Albumin 05/19/19 05/19/19 05/19/19 05:39 05:39 06:13 WBC 5.8 RBC 3.34 L Hgb 10.9 Hct 31.3 L MCV 93.7 MCH 32.6 MCHC 34.8 RDW 12.1 Plt Count 229 MPV 8.5 Sodium 137 Potassium 4.7 Chloride 103 Carbon Dioxide 27 Anion Gap 7 L BUN 21.4 H Creatinine 1.3 Est GFR (CKD-EPI)AfAm 42.72 Est GFR (CKD-EPI)NonAf 36.86 POC Glucometer 140 Random Glucose 141 H Calcium 8.6 Total Bilirubin 0.7 AST 14 L ALT 18 Alkaline Phosphatase 111 Total Protein 6.4 Albumin 2.9 L Problem List - Problems (1) Sepsis Code(s): A41.9 - SEPSIS, UNSPECIFIED ORGANISM Qualifiers: Sepsis type: sepsis due to unspecified organism Qualified Code(s): A41.9 - Sepsis, unspecified organism (2) HLD (hyperlipidemia) Code(s): E78.5 - HYPERLIPIDEMIA, UNSPECIFIED (3) HTN (hypertension) Code(s): I10 - ESSENTIAL (PRIMARY) HYPERTENSION (4) UTI (urinary tract infection) Code(s): N39.0 - URINARY TRACT INFECTION, SITE NOT SPECIFIED Qualifiers: Urinary tract infection type: site unspecified Hematuria presence: without hematuria Qualified Code(s): N39.0 - Urinary tract infection, site not specified IMP: Recurrent Gm (-) Sepsis Asthma: Stable PLAN: BD TX PRN O2 PRN ABX course per ID VTE prophylaxis Dr Cruz
--- NOTE | 2019-05-19 15:21 | PN ---
Progress Note, Physician History of Present Illness: Pt seen and examined at bedside. She is awake and alert. She denies shortness of breath. - Current Medication List Current Medications: Active Medications Acetaminophen (Tylenol -) 650 mg PO Q6H PRN PRN Reason: FEVER Last Admin: 05/16/19 20:58 Dose: 650 mg Albuterol/Ipratropium (Duoneb -) 1 amp NEB Q8H PRN PRN Reason: ASTHMA Last Admin: 05/18/19 19:40 Dose: 1 amp Amlodipine Besylate (Norvasc -) 10 mg PO DAILY [facility] Last Admin: 05/19/19 09:37 Dose: 10 mg Ascorbic Acid (Vitamin C -) 500 mg PO DAILY [facility] Last Admin: 05/19/19 09:37 Dose: 500 mg Atorvastatin Calcium (Lipitor -) 10 mg PO HS [facility] Last Admin: 05/18/19 22:12 Dose: 10 mg Cholecalciferol (Vitamin D3 -) 1,000 unit PO DAILY [facility] Last Admin: 05/19/19 09:37 Dose: 1,000 unit Docusate Sodium (Colace -) 100 mg PO Q8H PRN PRN Reason: CONSTIPATION Enalapril Maleate (Vasotec -) 5 mg PO DAILY [facility] Last Admin: 05/19/19 09:36 Dose: 5 mg Glimepiride (Amaryl -) 4 mg PO DAILY@0700 [facility] Last Admin: 05/19/19 06:15 Dose: 4 mg Heparin Sodium (Porcine) (Heparin -) 5,000 unit SQ TID [facility] Last Admin: 05/19/19 14:26 Dose: 5,000 unit Ceftazidime 1 gm/ Dextrose 100 mls @ 200 mls/hr IVPB Q8H-IV [facility]; Protocol Last Admin: 05/19/19 09:36 Dose: 200 mls/hr Insulin Aspart (Novolog Vial Sliding Scale -) 1 vial SQ ACHS [facility]; Protocol Last Admin: 05/19/19 12:20 Dose: 3 units Metoclopramide HCl (Reglan Injection -) 10 mg IVPUSH Q8H PRN PRN Reason: NAUSEA AND/OR VOMITING Propranolol HCl (Inderal La -) 60 mg PO DAILY [facility] Last Admin: 05/19/19 09:36 Dose: 60 mg Quetiapine Fumarate (Seroquel -) 12.5 mg PO DAILY [facility] Last Admin: 05/19/19 09:37 Dose: 12.5 mg Ranitidine HCl (Zantac -) 150 mg PO DAILY [facility] Last Admin: 05/19/19 09:36 Dose: 150 mg Senna (Senna -) 2 tab PO HS PRN PRN Reason: CONSTIPATION Sitagliptin Phosphate (Januvia -) 50 mg PO DAILY@0700 [facility] Last Admin: 05/19/19 06:15 Dose: 50 mg - Objective Vital Signs: Vital Signs Temperature 98.2 F 05/19/19 14:51 Pulse Rate 52 L 05/19/19 14:51 Respiratory Rate 17 05/19/19 14:51 Blood Pressure 106/51 L 05/19/19 14:51 O2 Sat by Pulse Oximetry (%) 97 05/19/19 09:00 Constitutional: Yes: Calm Eyes: Yes: Conjunctiva Clear HENT: Yes: Atraumatic Neck: Yes: Supple Cardiovascular: Yes: S1, S2 Respiratory: Yes: CTA Bilaterally Gastrointestinal: Yes: Soft Genitourinary: Yes: WNL Musculoskeletal: Yes: WNL Edema: No Neurological: Yes: Oriented Psychiatric: Yes: Oriented Labs: CBC, BMP 05/19/19 05:39 05/19/19 05:39 INR, PTT INR 1.18 (0.83-1.09) H 05/15/19 19:23 Problem List - Problems (1) Hyperkalemia Code(s): E87.5 - HYPERKALEMIA Assessment/Plan Current Medications Generic Name Dose Route Start Last Admin Trade Name Freq PRN Reason Stop Dose Admin Acetaminophen 650 mg 05/15/19 21:25 05/16/19 20:58 Tylenol - PO 650 mg Q6H PRN Administration FEVER Albuterol/Ipratropium 1 amp 05/17/19 10:57 05/18/19 19:40 Duoneb - NEB 1 amp Q8H PRN Administration ASTHMA Amlodipine Besylate 10 mg 05/16/19 10:00 05/19/19 09:37 Norvasc - PO 10 mg DAILY [facility] Administration Ascorbic Acid 500 mg 05/16/19 10:00 05/19/19 09:37 Vitamin C - PO 500 mg DAILY [facility] Administration Atorvastatin Calcium 10 mg 05/16/19 22:09 05/18/19 22:12 Lipitor - PO 10 mg HS [facility] Administration Cholecalciferol 1,000 unit 05/16/19 10:00 05/19/19 09:37 Vitamin D3 - PO 1,000 unit DAILY [facility] Administration Docusate Sodium 100 mg 05/15/19 21:32 Colace - PO Q8H PRN CONSTIPATION Enalapril Maleate 5 mg 05/16/19 13:00 05/19/19 09:36 Vasotec - PO 5 mg DAILY [facility] Administration Glimepiride 4 mg 05/17/19 07:00 05/19/19 06:15 Amaryl - PO 4 mg DAILY@0700 [facility] Administration Heparin Sodium (Porcine) 5,000 unit 05/15/19 22:00 05/19/19 14:26 Heparin - SQ 5,000 unit TID [facility] Administration Ceftazidime 1 gm/ Dextrose 100 mls @ 200 mls/hr 05/16/19 18:00 05/19/19 09:36 IVPB 200 mls/hr Q8H-IV [facility] Administration Protocol Insulin Aspart 1 vial 05/15/19 22:00 05/19/19 12:20 Novolog Vial Sliding Scale - SQ 3 units ACHS [facility] Administration Protocol Metoclopramide HCl 10 mg 05/15/19 22:37 Reglan Injection - IVPUSH Q8H PRN NAUSEA AND/OR VOMITING Propranolol HCl 60 mg 05/16/19 17:00 05/19/19 09:36 Inderal La - PO 60 mg DAILY [facility] Administration Quetiapine Fumarate 12.5 mg 05/16/19 10:00 05/19/19 09:37 Seroquel - PO 12.5 mg DAILY [facility] Administration Ranitidine HCl 150 mg 05/16/19 10:00 05/19/19 09:36 Zantac - PO 150 mg DAILY [facility] Administration Senna 2 tab 05/15/19 21:32 Senna - PO HS PRN CONSTIPATION Sitagliptin Phosphate 50 mg 05/17/19 09:15 05/19/19 06:15 Januvia - PO 50 mg DAILY@0700 [facility] Administration Impression 1. CKD 2. UTI 3. hyperkalemia 4. DM 5. HTN Plan - renal function stable - potassium stable - can cont raoul - cxr report reviewed - will follow PRN
--- NOTE | 2019-05-19 15:34 | PN ---
Progress Note (short form) - Note Progress Note: doing well Vital Signs Period Temp Pulse Resp BP Sys/Major Pulse Ox Last 24 Hr 98 F-98.6 F 52-82 17-20 106-151/51-79 95-97 cor-rrr lungs clear abd soft,nt ext no edema CBC, BMP 05/19/19 05:39 05/19/19 05:39 Microbiology 05/17/19 08:45 Blood - Peripheral Venous Blood Culture - Preliminary NO GROWTH OBTAINED AFTER 48 HOURS, INCUBATION TO CONTINUE FOR 3 DAYS. 05/17/19 08:52 Blood - Peripheral Venous Blood Culture - Preliminary NO GROWTH OBTAINED AFTER 48 HOURS, INCUBATION TO CONTINUE FOR 3 DAYS. 05/16/19 07:25 Blood - Peripheral Venous Blood Culture - Preliminary NO GROWTH OBTAINED AFTER 72 HOURS, INCUBATION TO CONTINUE FOR 2 DAYS. 05/16/19 07:15 Blood - Peripheral Venous Blood Culture - Preliminary NO GROWTH OBTAINED AFTER 72 HOURS, INCUBATION TO CONTINUE FOR 2 DAYS. 05/15/19 19:23 Blood - Peripheral Venous Blood Culture - Preliminary NO GROWTH OBTAINED AFTER 72 HOURS, INCUBATION TO CONTINUE FOR 2 DAYS. 05/15/19 19:23 Blood - Peripheral Venous Blood Culture - Preliminary NO GROWTH OBTAINED AFTER 72 HOURS, INCUBATION TO CONTINUE FOR 2 DAYS. 05/15/19 19:23 Urine - Urine - Catheterized Urine Culture - Final NO GROWTH OBTAINED a/p fever/zeenat resolved suggest d/c antiibotics and observe cultures all negative ?food poisoning-prepared a chicken improperly per family now resolved she feels well
[2019-05-19 16:59] VITALS: BP 131/64; PULSE 53; TEMP 97.6
== END 2019-05-19 17:52 | disposition home or self-care (01) | DRG 872 ==
LOC: JER 18:36 → JERBED 20:34 → J8W 22:36
PROVIDERS: ADMIT Family Medicine; ATTEND Family Medicine
DX: A41.9 Sepsis, unspecified organism (principal); N17.9 Acute kidney failure, unspecified; N39.0 Urinary tract infection, site not specified; E78.5 Hyperlipidemia, unspecified; R50.9 Fever, unspecified; E87.5 Hyperkalemia; E86.0 Dehydration; E11.65 Type 2 diabetes mellitus with hyperglycemia; E11.40 Type 2 diabetes mellitus with diabetic neuropathy, unspecified; D72.829 Elevated white blood cell count, unspecified; I12.9 Hypertensive chronic kidney disease with stage 1 through stage 4 chronic kidney disease, or unspecified chronic kidney disease; N18.9 Chronic kidney disease, unspecified; K21.9 Gastro-esophageal reflux disease without esophagitis; E11.21 Type 2 diabetes mellitus with diabetic nephropathy; R31.29 Other microscopic hematuria; Z16.12 Extended spectrum beta lactamase (ESBL) resistance
CPT/HCPCS: 36415; 36600; 71045-TC-FY; 71046-TC-FY; 80053; 81003; 82150; 82375; 82803; 82962; 83050; 83605; 83690; 83735; 83880; 84100; 84484; 85025; 85027; 85610; 85730; 87040; 87086; 93005; 93010; 94640; 97116-GP; 97161-GP; 99285-25; J0131; J1644; J7030